=== PATIENT | male | born 1970 | race Caucasian/White ===

== ENCOUNTER 2016-09-15 00:01 | Inpatient (IN) | payer MEDICAID ==
[2016-09-15 00:01] VITALS: BMI 26.9
--- NOTE | 2016-09-15 00:58 | C.PDOC ---
History Of Present Illness Patient presents to the ED with complaints of heroin, Xanax, and marijuana abuse. Patient states last heroin use was approximately 30-40 minutes prior to arrival. Patient denies any homicidal or suicidal ideations. Time Seen by Provider: 09/15/16 00:58 Chief Complaint (Nursing): Psychiatric Evaluation History Per: Patient History/Exam Limitations: no limitations Onset/Duration Of Symptoms: Hrs Current Symptoms Are (Timing): Still Present Suicide/Self Injury Attempted (Context): None Associated Symptoms: denies: Suicidal Thoughts, Suicidal Plan Involuntary Hold By: None Recent travel outside of the [place]: No Past Medical History Reviewed: Historical Data, Nursing Documentation, Vital Signs Vital Signs: Last Vital Signs Temp 98.2 F 09/15/16 00:07 Pulse 76 09/15/16 00:07 Resp 20 09/15/16 00:07 BP 120/80 09/15/16 00:07 Pulse Ox 97 09/15/16 02:25 - Medical History PMH: Asthma Family History: States: Unknown Family Hx - Social History Hx Alcohol Use: No Hx Substance Use: No Review Of Systems Constitutional: Negative for: Fever, Chills, Sweats Cardiovascular: Negative for: Chest Pain, Palpitations Respiratory: Negative for: Cough, Shortness of Breath Gastrointestinal: Negative for: Nausea, Vomiting, Abdominal Pain, Diarrhea Physical Exam - Physical Exam Appears: Non-toxic, No Acute Distress Skin: Warm, Dry Head: Atraumatic Eye(s): bilateral: Normal Inspection Oral Mucosa: Moist Neck: Supple Chest: Symmetrical, No Deformity Cardiovascular: Rhythm Regular Respiratory: No Rales, No Rhonchi, No Stridor, No Wheezing Gastrointestinal/Abdominal: Soft, No Tenderness, No Distention, No Guarding, No Rebound Extremity: Normal ROM, No Tenderness Neurological/Psych: Oriented x3 ED Course And Treatment - Laboratory Results Result Diagrams: 09/15/16 01:17 09/15/16 01:17 O2 Sat by Pulse Oximetry: 97 (room air ) Pulse Ox Interpretation: Normal Disposition Discussed With : Princess Ruiz Comment: accepted the pt on his service adn took over the care at 3:10AM Doctor Will See Patient In The: Hospital Counseled Patient/Family Regarding: Studies Performed, Diagnosis - Disposition Disposition: HOSPITALIZED Disposition Time: 00:58 Condition: FAIR - POA Present On Arrival: None - Clinical Impression Clinical Impression: Polysubstance abuse - Scribe Statement The provider has reviewed the documentation as recorded by the Scribe Trixie Cohen All medical record entries made by the Scribe were at my direction and personally dictated by me. I have reviewed the chart and agree that the record accurately reflects my personal performance of the history, physical exam, medical decision making, and the department course for this patient. I have also personally directed, reviewed, and agree with the discharge instructions and disposition. Decision To Admit - Pt Status Changed To: Hospital Disposition Of: Inpatient - Admit Certification Admit to Inpatient:: After my assessment, the patient will require hospitalization for at least two midnights. This is because of the severity of symptoms shown, intensity of services needed, and/or the medical risk in this patient being treated as an outpatient. - InPatient: Physician Admission Certification: I certify that this patient requires 2 or more midnights of care for the following reason:: After my assessment, the patient will require hospitalization for at least two midnights. This is because of the severity of symptoms shown, intensity of services needed, and/or the medical risk in this patient being treated as an outpatient. - . Bed Request Type: Detox Admitting Physician: Princess Ruiz Patient Diagnosis: Polysubstance abuse
[2016-09-15 01:19] LABS: RBC URINE 1 /hpf (0-3); URINE BILIRUBIN NEGATIVE (NEGATIVE); URINE BLOOD NEGATIVE (NEGATIVE); URINE COLOR Yellow (YELLOW); URINE GLUCOSE (UA) NORMAL (Normal); URINE KETONE TRACE mg/dL (NEGATIVE); URINE LEUKOCYTE ESTERASE NEG Leu/uL (Negative); URINE PROTEIN NEGATIVE (NEGATIVE); URINE UROBILINOGEN NORMAL mg/dL (0.2-1.0); WBC URINE 1 /hpf (0-5)
[2016-09-15 01:22] LABS: BASO # 0.1 K/uL (0.0-0.2); BASO % 1.4 % (0.0-2.0); EOS # 0.2 K/uL (0.0-0.7); EOS % 3.3 % (0.0-4.0); HEMATOCRIT 41.7 % (35.0-51.0); LYMPH # 2.3 K/uL (1.0-4.3); LYMPH % 32.3 % (20.0-40.0); MEAN CELL VOLUME 81.1 fL (80.0-94.0); MEAN CORPUSCULAR HEMOGLOBIN 26.4 pg (27.0-31.0); MEAN CORPUSCULAR HGB CONC 32.6 g/dL (33.0-37.0); MEAN PLATELET VOLUME 8.3 fL (7.2-11.7); MONO # 0.7 K/uL (0.0-0.8); MONO % 10.3 % (0.0-10.0); RED CELL DISTRIBUTION WIDTH 13.7 % (11.5-14.5); WHITE BLOOD COUNT 7.1 K/uL (4.8-10.8)
[2016-09-15 01:29] LABS: CHLORIDE 104 mmol/L (98-107); POTASSIUM 4.3 mmol/L (3.6-5.2); SODIUM 143 mmol/L (132-148)
[2016-09-15 01:31] LABS: BILIRUBIN,TOTAL 0.4 mg/dL (0.2-1.3); CARBON DIOXIDE 27 mmol/L (22-30); GFR AFRICAN-AMERICAN > 60
[2016-09-15 01:32] LABS: ALB/GLOB RATIO 1.5 (1.0-2.1); ALKALINE PHOSPHATASE 69 U/L (38-126); ALT/SGPT 30 U/L (21-72); AST/SGOT 34 U/L (17-59); BLOOD UREA NITROGEN 17 mg/dL (9-20); CALCIUM 9.2 mg/dl (8.6-10.4); GLUCOSE,RANDOM 111 mg/dL (75-110); TOTAL PROTEIN 7.2 g/dL (6.3-8.3)
[2016-09-15 01:33] LABS: ALCOHOL SERUM < 10 mg/dl (0-10)
--- NOTE | 2016-09-15 08:18 | PCM.PSYCH ---
Initial Psychiatric Evaluation - Initial Psychiatric Evaluation Type of Admission: Voluntary Legal Status: Capacity History of Present Illness and Precipitating Events: This is a 46 years old -Chinese male, who lives with his friend, currently unemployed came to the ED to get help heroin and Benzos detox. Patient reports of long history of abusing opiate pain medications, heroin and Xanax. Patient reports a long history of abusing heroin opiate pain medications. He sniffs 10-20 bags of heroin on a daily basis. He also reported history of consuming 4-6 Xanax bars on a daily basis. As per the patient yesterday he abused 20 bags of heroin and consumed 5 Xanax bars and started experiencing withdrawal symptoms so he came to ED to get help in detox. Patient reports withdrawal symptoms including headache, anxiety, nausea, abdominal cramps, hot and cold sweats and back pain. Patient reports irritable mood and some anxiety. However he denies any feelings of hopelessness or helplessness, denies any suicidal ideation or homicidal ideation. Denies any psychotic or manic symptoms. He also reports smoking marijuana once in a while. Past medical history History of asthma Current Medications: Active Medications Generic Name Dose Route Start Last Admin Trade Name Freq PRN Reason Stop Dose Admin Clonidine HCl 0.1 mg 09/15/16 04:14 Catapres PO Q8 PRN COWS Score More or Equal to 5 Hydroxyzine HCl 25 mg 09/15/16 04:15 Atarax PO Q6 PRN Agitation Loperamide HCl 2 mg 09/15/16 04:14 Imodium PO Q8 PRN Diarrhea Lorazepam 1 mg 09/15/16 04:15 Ativan PO Q6 PRN Anxiety Ondansetron HCl 4 mg 09/15/16 04:14 Zofran Tab PO Q8 PRN Nausea/Vomiting Pseudoephedrine HCl 60 mg 09/15/16 04:14 Sudafed Tab PO QID PRN Nasal/Sinus Congestion Trazodone HCl 50 mg 09/15/16 22:00 Desyrel PO HS PIOTR Past Psychiatric History - Past Psychiatric History Previous Treatment History: Inpatient Pertinent Medical Hx (Current Medical&Sleep Prob, Allergies): Allergies Allergy/AdvReac Type Severity Reaction Status Date / Time No Known Allergies Allergy Verified 01/27/15 16:48 Albuterol 1 puff INH PRN PRN 01/27/15 Naproxen [Naprosyn] 1 tab PO BID PRN #25 tab 01/27/15 Review of Systems - Review of Systems All systems: reviewed and no additional remarkable complaints except - Psychiatric Psychiatric: As Per HPI, Anxiety, Irritability. absent: Auditory Hallucinations , Suicidal Ideation, Visual Hallucinations Mental Status Examination - Personal Presentation Personal Presentation: Looks stated age - Affect Affect: Constricted - Motor Activity Motor Activity: Calm - Reliability in Providing Information Reliability in Providing Information: Good - Speech Speech: Organized - Mood Mood: Anxious - Formal Thought Process Formal Thought Process: No Impairment - Obsessions/Compulsions Obsessions: No Compulsions: No - Cognitive Functions Orientation: Person, Place, Situation, Time Sensorium: Alert Attention/Concentration: Attentive Abstract Thinking: [place] Estimate of Intelligence: Below average Judgement: Imparied, as evidence by: Poor judgement, Intact, as evidence by: Insight regarding need for hospitalization - Risk Risk: Withdrawal, Diminished functioning - Strength & Assets Inventory Strength & Assets Inventory: Cooperative - Limitations Limitations: Living alone DSM 5 DX - DSM 5 DSM 5 Diagnosis: Opioid use disorder severe Opioid withdrawal Sedative /Hypnotic use disorder severe Sedative /Hypnotic withdrawal uncomplicated - Recommended/Plan of Treatment Treatment Recommendations and Plan of Treatment: Opioid use disorder severe CBT Psychoeducation Supportive therapy, individual therapy Use [place] for abstinence Opioid withdrawal CBT Psychoeducation Supportive therapy, individual therapy Clonidine when necessary Subutax taper Sedative /Hypnotic use disorder severe CBT Psychoeducation Supportive therapy, individual therapy Use ME for abstinence Sedative /Hypnotic withdrawal uncomplicated CBT Psychoeducation Supportive therapy, individual therapy Ativan when necessary Ativan taper when withdrawing - Smoking Cessation Smoking Cessation Initiated: No
[2016-09-16] MEDS ORDERED: Buprenorphine Hydrochloride 2 mg SL ONE ×2 (06:00→07:00)
--- NOTE | 2016-09-16 14:14 | PCM.PYCHPN ---
Psychiatric Progress Note - Psychiatric Progress Note Patient seen today, length of contact: 17 min Patient Chief Complaint: I'm feeling anxious Problems Identified/Issues Discussed: Patient seen and evaluated, chart reviewed and discussed with the nurse. Anival patient reports anxiety and irritability. He also reports withdrawal symptoms including abdominal cramps, back pain, anxiety, and sweating. He is tolerating the detox protocol medications and denies any feelings of hopelessness or helplessness. He denies any suicidal ideation or homicidal ideation. He denies any side effects of the medications. Supportive therapy and psychoeducation were given. Medication Change: Yes (Subutex taper) Medical Record Reviewed: Yes Mental Status Examination - Cognitive Function Orientation: Person, Place, Situation, Time Memory: Intact Attention: WNL Concentration: Poor Association: WNL Fund of Knowledge: Poor - Mood Mood: Anxious - Affect Affect: Constricted - Speech Speech: Soft - Formal Thought Process Formal Thought Process: No Impairment - Suicidal Ideation Suicidal Ideation: No - Homicidal Ideation Homicidal Ideation: No Goal/Treatment Plan - Goal/Treatment Plan Need for Continued Stay: Discharge may exacerbated symptoms, Severe functional impairment Progress Toward Problem(s) and Goals/Treatment Plan: Opioid use disorder severe CBT Psychoeducation Supportive therapy, individual therapy Use [place] for abstinence Opioid withdrawal CBT Psychoeducation Supportive therapy, individual therapy Clonidine when necessary Subutax taper Sedative /Hypnotic use disorder severe CBT Psychoeducation Supportive therapy, individual therapy Use [place] for abstinence Sedative /Hypnotic withdrawal uncomplicated CBT Psychoeducation Supportive therapy, individual therapy Ativan when necessary Ativan taper when withdrawing - Smoking Cessation Smoking Cessation Initiated: No
[2016-09-17] MEDS: Buprenorphine Hydrochloride 2 mg SL SCH (09:15)
[2016-09-17 20:17] VITALS: RESP 18
--- NOTE | 2016-09-17 22:37 | PCM.PYCHPN ---
Psychiatric Progress Note - Psychiatric Progress Note Patient seen today, length of contact: 16 min Patient Chief Complaint: "Better today" Problems Identified/Issues Discussed: The pt is seen, chart reviewed, case discussed with staff. The pt is compliant with medications and reports no side-effects. Symptoms are improving but needs more time to stabilize. After care discussed, support and psychoeducation given. NM and CBT used briefly. Medication Change: Yes (Subutex taper) Medical Record Reviewed: Yes Mental Status Examination - Cognitive Function Orientation: Person, Place, Situation, Time Memory: Intact Attention: WNL Concentration: Poor Association: WNL Fund of Knowledge: Poor - Mood Mood: Anxious - Affect Affect: Constricted - Speech Speech: Soft - Formal Thought Process Formal Thought Process: No Impairment - Suicidal Ideation Suicidal Ideation: No - Homicidal Ideation Homicidal Ideation: No Goal/Treatment Plan - Goal/Treatment Plan Need for Continued Stay: Discharge may exacerbated symptoms, Severe functional impairment Progress Toward Problem(s) and Goals/Treatment Plan: Continue medications Support and psychoeducation daily Attend groups and activities daily After care planning done
[2016-09-18] MEDS: Buprenorphine Hydrochloride 2 mg SL SCH (09:58)
--- NOTE | 2016-09-18 11:35 | PCM.PYCHPN ---
Psychiatric Progress Note - Psychiatric Progress Note Patient seen today, length of contact: 17 min Patient Chief Complaint: "I am thinking about leaving" Problems Identified/Issues Discussed: The pt is seen, chart reviewed, case discussed with staff. He asked to leave but risks discussed and he agreed to stay and complete his detox. Symptoms are improving but needs more time to stabilize. will leave tomorrow After care discussed, support and psychoeducation given. Will go to [facility] HI and CBT used briefly. Medication Change: Yes (Subutex taper) Medical Record Reviewed: Yes Mental Status Examination - Cognitive Function Orientation: Person, Place, Situation, Time Memory: Intact Attention: WNL Concentration: Poor Association: WNL Fund of Knowledge: Poor - Mood Mood: Anxious - Affect Affect: Constricted - Speech Speech: Soft - Formal Thought Process Formal Thought Process: No Impairment - Suicidal Ideation Suicidal Ideation: No - Homicidal Ideation Homicidal Ideation: No Goal/Treatment Plan - Goal/Treatment Plan Need for Continued Stay: Discharge may exacerbated symptoms, Severe functional impairment Progress Toward Problem(s) and Goals/Treatment Plan: Continue medications Support and psychoeducation daily Attend groups and activities daily After care planning done - [facility] Estimated Date of D/C: 09/19/16 - Smoking Cessation Smoking Cessation Initiated: Yes
--- NOTE | 2016-09-19 08:47 | PCM.PYCHDC ---
Mental Status Examination - Mental Status Examination Orientation: Person, Place, Situation, Time Memory: Intact Mood: Neutral Affect: Broad Speech: Appropriate Attention: WNL Concentration: WNL Association: WNL Fund of Knowledge: WNL Formal Thought Process: No Impairment Suicidal Ideation: No Current Homicidal Ideation?: No Discharge Summary - Discharge Note Reason for Hospitalization: Opioid and benzo use and detox. Consultations:: List each consultation separately and include: 1. Reason for request. 2. Findings. 3. Follow-up Summary of Hospital Course include:: 1. Description of specific treatment plan utilized for patients during their course of treatmen. 2. Summarize the time- course for resolution of acute symptoms and/or regressed behaviors. 3. Describe issues identified and worked on during hospitalization. 4. Describe medication utilized. 5. Describe medical problems identified and treated. 6. Reassessment of suicide risk Summary of Hospital Course: The pt was admitted and started on treatment with psychotherapy, support, psychoeducation and medications. NV and CBT used. The pt attended groups and activities, as well as milieu therapy. All the risks and benefits of medications are discussed and the patient understood and agreed. After care discussed with the patient. He is accepted by [facility] and left for there. - Final Diagnosis (DSM 5) Condition upon Discharge: IMPROVED DSM 5: Opioid use disorder severe Opioid withdrawal Sedative /Hypnotic use disorder severe Sedative /Hypnotic withdrawal uncomplicated Disposition: REHAB FACILITY/REHAB UNIT Follow-up Treatment Plan: He did not want any meds Follow after care plan as discussed; [facility] Use relapse prevention skills Return to ER or call 911 if suicidal, homicidal or symptoms relapse. Stay away from stress, alcohol and drugs. See primary doctor once a year. - Smoking Cessation Smoking Cessation Medication prescribed: No - Antipsychotic Medications Pt discharged on 2 or more routine antipsychotic medications: No
[2016-09-19] MEDS: Buprenorphine Hydrochloride 2 mg SL SCH (09:09)
[2016-09-19 09:51] VITALS: BP 116/79; PULSE 79; TEMP 98.3; O2SAT 100
== END 2016-09-19 10:00 | DRG 895 ==
LOC: C.ER 00:01 → C.7D 03:11
PROVIDERS: ADMIT Psychiatry & Neurology Psychiatry; ATTEND Psychiatry & Neurology Psychiatry
PROC: HZ2ZZZZ Detoxification Services for Substance Abuse Treatment (ICD-10-PCS; principal; 2016-09-15)
PROC: HZ59ZZZ Individual Psychotherapy for Substance Abuse Treatment, Supportive (ICD-10-PCS; 2016-09-15)
PROC: HZ86ZZZ Medication Management for Substance Abuse Treatment, Clonidine (ICD-10-PCS; 2016-09-15)
PROC: HZ96ZZZ Pharmacotherapy for Substance Abuse Treatment, Clonidine (ICD-10-PCS; 2016-09-15)
DX: F11.23 Opioid dependence with withdrawal (principal); F13.230 Sedative, hypnotic or anxiolytic dependence with withdrawal, uncomplicated; J45.909 Unspecified asthma, uncomplicated; F17.210 Nicotine dependence, cigarettes, uncomplicated

== ENCOUNTER 2016-09-27 16:14 | Emergency (ER) | payer OTHER ==
[2016-09-27 16:15] VITALS: BMI 26.9
[2016-09-27 16:24] VITALS: BP 138/85; PULSE 115; RESP 20; TEMP 99; O2SAT 99
--- NOTE | 2016-09-27 18:39 | C.PDOC ---
History Of Present Illness 46 yr old male presents to the ER requesting a note for the [employer] stating he can't work in a area that has dust. States he has asthma and uses his albuterol pump as needed. Patient states he has no PMD. Denies fever, chest pain, SOB or rash. Time Seen by Provider: 09/27/16 16:30 Chief Complaint (Nursing): Shortness Of Breath History Per: Patient History/Exam Limitations: no limitations Past Medical History Reviewed: Historical Data, Nursing Documentation, Vital Signs Vital Signs: Last Vital Signs Temp 99 F 09/27/16 16:22 Pulse 115 H 09/27/16 16:22 Resp 20 09/27/16 16:40 BP 138/85 09/27/16 16:22 Pulse Ox 99 09/27/16 18:40 - Medical History PMH: Asthma - [facility] Procedures DETOXIFICATION SERVICES FOR SUBSTANCE ABUSE TREATMENT (09/15/16) INDIV PSYCHOTHERAPY FOR SUBSTANCE ABUSE TREATMENT, SUPPORT (09/15/16) MEDS MGMT FOR SUBSTANCE ABUSE TREATMENT, CLONIDINE (09/15/16) PHARMACOTHERAPY FOR SUBSTANCE ABUSE TREATMENT, CLONIDINE (09/15/16) Family History: States: No Known Family Hx - Social History Hx Alcohol Use: No Hx Substance Use: No Review Of Systems Except As Marked, All Systems Reviewed And Found Negative. Constitutional: Negative for: Fever Cardiovascular: Negative for: Chest Pain Respiratory: Negative for: Shortness of Breath Skin: Negative for: Rash Physical Exam - Physical Exam Appears: Non-toxic, No Acute Distress Skin: Warm, Dry, No Rash Head: Atraumatic, Normacephalic Chest: Symmetrical, No Tenderness Cardiovascular: Rhythm Regular, No Murmur Respiratory: Normal Breath Sounds, No Rales, No Rhonchi, No Stridor, No Wheezing Extremity: Normal ROM, No Swelling Neurological/Psych: Oriented x3, Normal Speech, Normal Motor ED Course And Treatment O2 Sat by Pulse Oximetry: 99 Disposition - Disposition Referrals: [facility] [Outside] [facility] [Outside] Disposition: HOME/ ROUTINE Disposition Time: 16:50 Condition: GOOD Additional Instructions: Thank you for letting us take care of you today. You were treated for asthma. The emergency medical care you received today was directed at your acute symptoms. If you were prescribed any medication, please fill it and take as directed. It may take several days for your symptoms to resolve. Return to the Emergency Department if your symptoms worsen, do not improve, or if you have any other problems. Please contact your doctor or call one of the physicians/clinics you have been referred to that are listed on the Patient Visit Information form that is included in your discharge packet. Bring any paperwork you were given at discharge with you along with any medications you are taking to your follow up visit. Our treatment cannot replace ongoing medical care by a primary care provider (PCP) outside of the emergency department. Thank you for allowing the [facility] team to be part of your care today. Follow up in the clinic for outpatient care. To the [employer]: The above patient claims to have asthma. Please consider this when assigning him work. He will follow up with our clinic in 3-4 days to establish a primary care doctor. Instructions: Asthma (ED) - Clinical Impression Clinical Impression: Asthma - Scribe Statement The provider has reviewed the documentation as recorded by the Malaikaibleland Rodriguez Provider Attestation: All medical record entries made by the Malaikaibleland were at my direction and personally dictated by me. I have reviewed the chart and agree that the record accurately reflects my personal performance of the history, physical exam, medical decision making, and the department course for this patient. I have also personally directed, reviewed, and agree with the discharge instructions and disposition.
== END 2016-09-27 17:07 | disposition home or self-care (01) ==
LOC: C.ER 16:14
DX: J45.909 Unspecified asthma, uncomplicated (principal)

== ENCOUNTER 2017-02-21 03:40 | Inpatient (IN) | payer SELFPAY ==
[2017-02-21 03:40] VITALS: BMI 26.9
--- NOTE | 2017-02-21 04:54 | C.PDOC ---
History Of Present Illness 46 year old male with Hx of substance abuse presents to the ED for detox. Patient was pre screened before, he states using heroin, xanax and marijuana. Last use of heroin was today at 22:00. Denies any physical problems at the time. Time Seen by Provider: 02/21/17 04:19 Chief Complaint (Nursing): Substance Abuse History Per: Patient History/Exam Limitations: no limitations Onset/Duration Of Symptoms: Hrs Suicide/Self Injury Attempted (Context): None Modifying Factor(s): Marijuana, Other (Heroin, Xanax) Associated Symptoms: denies: Depression, Suicidal Thoughts, Suicidal Plan Involuntary Hold By: None Recent travel outside of the [place]: No Additional History Per: Patient Past Medical History Reviewed: Historical Data, Nursing Documentation, Vital Signs Vital Signs: Last Vital Signs Temp 97.7 F 02/21/17 04:13 Pulse 82 02/21/17 04:13 Resp 20 02/21/17 04:13 BP 129/85 02/21/17 04:13 Pulse Ox 100 02/21/17 04:59 - Medical History PMH: Asthma Denies: Diabetes, Hepatitis, HIV, HTN, Seizures, Sexually Transmitted Disease Surgical History: No Surg Hx - [facility] Procedures DETOXIFICATION SERVICES FOR SUBSTANCE ABUSE TREATMENT (09/15/16) INDIV PSYCHOTHERAPY FOR SUBSTANCE ABUSE TREATMENT, SUPPORT (09/15/16) MEDS MGMT FOR SUBSTANCE ABUSE TREATMENT, CLONIDINE (09/15/16) PHARMACOTHERAPY FOR SUBSTANCE ABUSE TREATMENT, CLONIDINE (09/15/16) Family History: States: Unknown Family Hx - Social History Hx Alcohol Use: Yes Hx Substance Use: Yes - Immunization History Hx Tetanus Toxoid Vaccination: No Hx Influenza Vaccination: No Hx Pneumococcal Vaccination: No Review Of Systems Constitutional: Negative for: Fever Cardiovascular: Negative for: Chest Pain, Palpitations Respiratory: Negative for: Cough, Shortness of Breath Gastrointestinal: Negative for: Nausea, Vomiting, Abdominal Pain Neurological: Negative for: Weakness, Numbness Psych: Negative for: Depression, Suicidal ideation Physical Exam - Physical Exam Appears: Non-toxic, No Acute Distress Skin: Normal Color, Warm, Dry Head: Atraumatic, Normacephalic Oral Mucosa: Moist Neck: Normal ROM, Supple Chest: Symmetrical, No Tenderness Cardiovascular: Rhythm Regular, No Murmur Respiratory: Normal Breath Sounds, No Accessory Muscle Use, No Rales, No Rhonchi , No Wheezing Gastrointestinal/Abdominal: Soft, No Tenderness Extremity: Normal ROM, No Pedal Edema, No Calf Tenderness, No Swelling Neurological/Psych: Oriented x3, Normal Speech, Normal Cognition Gait: Steady ED Course And Treatment - Laboratory Results Result Diagrams: 02/21/17 04:58 02/21/17 04:58 O2 Sat by Pulse Oximetry: 100 (On RA) Pulse Ox Interpretation: Normal Progress Note: Plan: - Blood work ordered. -UA ordered. Patient was pre screened before for detox due to his use of heroin, xanax and marijuana. Pt is medically cleared for crisis eval and admission. Pt was screened by [facility] and will be admitted to Detox under Dr Pan Disposition - Disposition Disposition: HOSPITALIZED Disposition Time: 06:52 Condition: STABLE Forms: [facility] ([place]) - Clinical Impression Clinical Impression: Polysubstance abuse, Opioid use disorder, severe, dependence - PA / W[employer]IM[employer]ET[employer]ER / Resident Statement MD/DO has reviewed & agrees with the documentation as recorded. - Scribe Statement The provider has reviewed the documentation as recorded by the Scribe Yaron Yousif All medical record entries made by the Scribe were at my direction and personally dictated by me. I have reviewed the chart and agree that the record accurately reflects my personal performance of the history, physical exam, medical decision making, and the department course for this patient. I have also personally directed, reviewed, and agree with the discharge instructions and disposition.
[2017-02-21 05:01] LABS: BASO % 0.7 % (0.0-2.0); EOS # 0.2 K/uL (0.0-0.7); EOS % 3.5 % (0.0-4.0); HEMATOCRIT 44.3 % (35.0-51.0); LYMPH % 27.5 % (20.0-40.0); MEAN CELL VOLUME 80.7 fL (80.0-94.0); MEAN CORPUSCULAR HGB CONC 32.2 g/dL (33.0-37.0); MEAN PLATELET VOLUME 8.2 fL (7.2-11.7); MONO # 0.7 K/uL (0.0-0.8); MONO % 10.1 % (0.0-10.0); RED CELL DISTRIBUTION WIDTH 14.2 % (11.5-14.5); WHITE BLOOD COUNT 7.2 K/uL (4.8-10.8)
[2017-02-21 05:15] LABS: ALCOHOL SERUM < 10 mg/dl (0-10); ALKALINE PHOSPHATASE 72 U/L (38-126); ALT/SGPT 43 U/L (21-72); AST/SGOT 27 U/L (17-59); BILIRUBIN,TOTAL 0.4 mg/dL (0.2-1.3); BLOOD UREA NITROGEN 18 mg/dL (9-20); CALCIUM 8.9 mg/dl (8.6-10.4); CARBON DIOXIDE 27 mmol/L (22-30); CHLORIDE 101 mmol/L (98-107); GFR AFRICAN-AMERICAN > 60; GLUCOSE,RANDOM 73 mg/dL (75-110); POTASSIUM 4.1 mmol/L (3.6-5.2); SODIUM 137 mmol/L (132-148); TOTAL PROTEIN 8.3 g/dL (6.3-8.3)
[2017-02-21 05:21] LABS: ALB/GLOB RATIO 1.1 (1.0-2.1)
[2017-02-21 05:57] LABS: RBC URINE 1 /hpf (0-3); URINE BACTERIA RARE (<OCC); URINE BILIRUBIN NEGATIVE (NEGATIVE); URINE BLOOD NEGATIVE (NEGATIVE); URINE COLOR Yellow (YELLOW); URINE GLUCOSE (UA) NORMAL (Normal); URINE KETONE NEGATIVE (NEGATIVE); URINE LEUKOCYTE ESTERASE NEG Leu/uL (Negative); URINE PROTEIN NEGATIVE (NEGATIVE); URINE UROBILINOGEN NORMAL mg/dL (0.2-1.0); WBC URINE < 1 /hpf (0-5)
[2017-02-21] MEDS ORDERED: Aluminum Hydroxide/Magnesium Hydroxide Susp (30 mL) PO PRN (10:16)
--- NOTE | 2017-02-21 11:25 | PCM.BM ---
<Julia Simpson - Last Filed: 02/21/17 11:22> Treatment Plan Problems - Problems identified on initial assessmt Potential opiate withdrawals Date Initiated: 02/21/17 Assessment reference: NA Status: Active Potential benzo withdrawals Date Initiated: 02/21/17 Assessment reference: NA Status: Active Treatment assets and liabiliti Patient Assests: adapts well, cooperative, ADL independent, physically healthy, negotiates basic needs Patient Liabilities: substance abuse - Milieu Protocol Maintain good personal hygiene: daily Encourage regular showers, daily Remind patient to perform daily oral care, daily Assist patient to perform ADL's Conduct patient checks and document Observation sheet: Q15 minutes Maintain personal safety: every shift Educate patient to report safety concerns to staff, every shift Monitor environment for contraband/sharps Medication safety: Monitor for expected outcome, potential side effects: every shift, Assess barriers to learning: every shift, Assess readiness for medication education: every shift <Nilda Cisneros - Last Filed: 02/22/17 00:25> - Diagnosis (1) Opioid use disorder, severe, dependence Status: Acute Interventions: 02/22/17 00:25 * Assess 7x/week regarding severity of withdrawal * Educate regarding risks, benefits, side effects and alternatives of medications * Use Motivational Interviewing for abstinence * Use CBT for relapse prevention * Medication management for withdrawal symptoms * Encourage medication assisted treatment * <Ivy Lao - Last Filed: 02/25/17 08:54> Family Contact Family involvement: Family/SO is involved Family contact: Patient agrees to contact - Goals for Treatment Patient goals for treatment: COMPLETE DETOX AND APPLY FOR REHAB AT [facility]. Discharge/Continuing Care - Education Needs Education Needs: Patient Medication, Patient Diagnosis/Disease Process, Patient Coping Skills, Patient Anger Management skills, Patient Placement options, Patient Community resources - Discharge Discharge Criteria: No longer exhibiting s/s of withdrawal, Reduction of target symptoms Discharge to:: Substance Abuse Rehab - Treatment Team Participation Patient/Family/SO Statement: 02/25/17 08:53 "I WANNA GO TO [facility]". Discussed with Family/SO: Yes Was Patient/Family/SO present at Treatment Team Meeting: Yes
[2017-02-21] MEDS: Multiple Vitamins Tab PO SCH (11:27)
--- NOTE | 2017-02-21 11:55 | PCM.PSYCH ---
Initial Psychiatric Evaluation - Initial Psychiatric Evaluation Type of Admission: Voluntary Legal Status: Capacity Chief Complaint (in patient's own words): "I relapsed" History of Present Illness and Precipitating Events: The pt is seen, chart reviewed, case discussed with staff. Patient is a 46 YO single male who lives in with family. 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 Patient has a lifetime heroin use of 23 years. Patient has been using 40 bags/day intranasal since November when he relapsed. Patient has been in detox here once before. Patient has been to rehab once before. Patient has never used methadone for maintenance. Patient has never been to NA meetings. Patient reports using 4 sticks of Xanax "most days" for the last 5 years. Patient denies alcohol use. Patient denies any other drug use. Patient reports smoking 10 cigarettes/day. Patient plans to attend a [facility] rehab on discharge. Psych hx: denies Family hx: denies PMH: asthma Current Medications: Active Medications Generic Name Dose Route Start Last Admin Trade Name Freq PRN Reason Stop Dose Admin Al Hydrox/Mg Hydrox/Simethicone 30 ml 02/21/17 10:16 Maalox 30 Ml PO TID PRN Indigestion / Heartburn Chlordiazepoxide 25 mg 02/21/17 12:00 Librium PO 02/25/17 11:59 Q6 PIOTR Taper Chlordiazepoxide 25 mg 02/21/17 10:18 Librium PO Q4H PRN Alcohol Withdrawal Clonidine HCl 0.1 mg 02/21/17 10:16 Catapres PO Q8 PRN COWS Score More or Equal to 5 Gabapentin 300 mg 02/21/17 14:00 Neurontin PO TID [facility] Hydroxyzine HCl 50 mg 02/21/17 10:18 Atarax PO Q6H PRN Anxiety Ibuprofen 600 mg 02/21/17 10:18 Motrin Tab PO Q6H PRN Pain, moderate (4-7) Loperamide HCl 2 mg 02/21/17 10:16 Imodium PO Q8 PRN Diarrhea Multivitamins 1 tab 02/21/17 10:30 02/21/17 11:27 Hexavitamin PO Not Given DAILY [facility] Ondansetron HCl 4 mg 02/21/17 10:16 Zofran Tab PO Q8 PRN Nausea/Vomiting Past Psychiatric History - Past Psychiatric History Previous Treatment History: None Pertinent Medical Hx (Current Medical&Sleep Prob, Allergies): Allergies Allergy/AdvReac Type Severity Reaction Status Date / Time No Known Allergies Allergy Verified 09/27/16 16:28 Albuterol HFA [Ventolin HFA 90 mcg/actuation (8 g)] 1 puff INH PRN PRN 01/27/15 Review of Systems - Psychiatric Psychiatric: Abnormal Sleep Pattern, Anxiety. absent: Hallucinations, Homicidal Ideation, Suicidal Ideation Mental Status Examination - Personal Presentation Personal Presentation: Looks older than stated age - Affect Affect: Blunted - Motor Activity Motor Activity: Calm - Reliability in Providing Information Reliability in Providing Information: Fair - Speech Speech: Organized - Mood Mood: Neutral - Formal Thought Process Formal Thought Process: No Impairment - Obsessions/Compulsions Obsessions: None Compulsions: None - Cognitive Functions Orientation: Person, Place, Situation, Time Sensorium: Alert Estimate of Intelligence: Average Judgement: Intact, as evidence by: Insight regarding need for hospitalization Memory: Recent intact, as evidence by: Ability to recall events of the day, Remote intact, as evidenced by: Abilit to recall sig. 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
[2017-02-21] MEDS ORDERED: Buprenorphine Hydrochloride 2 mg SL ONE ×2 (18:01→19:28)
[2017-02-22] MEDS: Multiple Vitamins Tab PO SCH (08:59)
[2017-02-22] MEDS: Buprenorphine Hydrochloride 2 mg SL SCH (09:00)
--- NOTE | 2017-02-22 13:27 | PCM.PYCHPN ---
Psychiatric Progress Note - Psychiatric Progress Note Patient seen today, length of contact: 16 min Patient Chief Complaint: "Very tired" Problems Identified/Issues Discussed: The pt is seen, chart reviewed, case discussed with staff. The pt is compliant with medications and reports no side-effects. Symptoms are improving but needs more time to stabilize. After care discussed, support and psychoeducation given. Medication Change: Yes (detox changes daily) Medical Record Reviewed: Yes Mental Status Examination - Cognitive Function Orientation: Person, Place, Situation, Time Memory: Intact Attention: WNL Concentration: WNL Association: WNL Fund of Knowledge: WNL - Mood Mood: Neutral - Affect Affect: Constricted - Formal Thought Process Formal Thought Process: No Impairment - Suicidal Ideation Suicidal Ideation: No - Homicidal Ideation Homicidal Ideation: No Goal/Treatment Plan - Goal/Treatment Plan Need for Continued Stay: Discharge may exacerbated symptoms, Severe functional impairment Progress Toward Problem(s) and Goals/Treatment Plan: Subutex and librium detox As needed medications Gabapentin for augmentation Attend groups and activities Supportive therapy and psychoeducation [place] for abstinence CBT for relapse prevention Encourage MAT Refer to rehab or IOP Attend self-help groups as well
[2017-02-23] MEDS: Multiple Vitamins Tab PO SCH (09:15)
[2017-02-23] MEDS: Buprenorphine Hydrochloride 2 mg SL SCH (09:15)
--- NOTE | 2017-02-23 17:13 | PCM.PYCHPN ---
Psychiatric Progress Note - Psychiatric Progress Note Patient seen today, length of contact: 16 min Patient Chief Complaint: "I'm fine" Problems Identified/Issues Discussed: The pt is seen, chart reviewed, case discussed with staff. Support given, CBT and [place] used briefly No new symptoms reported, improving slowly and needs more time No SEs from medications, risks discussed. 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 severe anxiety disorder - unspecified Medication Change: Yes (detox changes daily) Medical Record Reviewed: Yes Mental Status Examination - Cognitive Function Orientation: Person, Place, Situation, Time Memory: Intact Attention: WNL Concentration: WNL Association: [facility] Fund of Knowledge: WN - Mood Mood: Neutral - Affect Affect: Constricted - Speech Speech: Appropriate - Formal Thought Process Formal Thought Process: No Impairment Psychotic Thoughts and Behaviors: denied - Suicidal Ideation Suicidal Ideation: No - Homicidal Ideation Homicidal Ideation: No Goal/Treatment Plan - Goal/Treatment Plan Need for Continued Stay: Discharge may exacerbated symptoms, Severe functional impairment Progress Toward Problem(s) and Goals/Treatment Plan: Subutex and librium detox As needed medications Gabapentin for augmentation Attend groups and activities Supportive therapy and psychoeducation [place] for abstinence CBT for relapse prevention Encourage MAT Refer to rehab or IOP Attend self-help groups as well Estimated Date of D/C: 02/25/17 - Smoking Cessation Smoking Cessation Initiated: Yes
[2017-02-24] MEDS: Multiple Vitamins Tab PO SCH (09:49)
[2017-02-24] MEDS: Buprenorphine Hydrochloride 2 mg SL SCH (09:50)
--- NOTE | 2017-02-24 16:25 | PCM.PYCHPN ---
Psychiatric Progress Note - Psychiatric Progress Note Patient seen today, length of contact: 16 min Patient Chief Complaint: "I'm fine" Problems Identified/Issues Discussed: The pt is seen, chart reviewed, case discussed with staff. Support given, CBT and [place] used briefly No new symptoms reported, improving slowly and needs more time. He is most of the time isolated to himself in the room No SEs from medications, risks discussed. After care discussed DSM 5 Symptoms Update: Opioid withdrawal Sedative, hypnotic or anxiolytic use d/o, severe, dependence,opioid use d/o severe, dependence Medication Change: Yes (detox changes daily) Medical Record Reviewed: Yes Mental Status Examination - Cognitive Function Orientation: Person, Place, Situation, Time Memory: Intact Attention: WNL Concentration: WNL Association: WNL Fund of Knowledge: [facility] Decription of patient's judgement and insights: good/good Addtional comments: He is malodorous - Mood Mood: Neutral - Affect Affect: Constricted - Speech Speech: Appropriate - Formal Thought Process Formal Thought Process: No Impairment Psychotic Thoughts and Behaviors: denied - Suicidal Ideation Suicidal Ideation: No - Homicidal Ideation Homicidal Ideation: No Goal/Treatment Plan - Goal/Treatment Plan Need for Continued Stay: Discharge may exacerbated symptoms, Severe functional impairment Progress Toward Problem(s) and Goals/Treatment Plan: Subutex and librium detox As needed medications Gabapentin for augmentation Attend groups and activities Supportive therapy and psychoeducation [place] for abstinence CBT for relapse prevention Encourage MAT Refer to rehab or IOP Attend self-help groups as well Estimated Date of D/C: 02/25/17
[2017-02-25 06:23] VITALS: RESP 18; TEMP 97.7
--- NOTE | 2017-02-25 08:45 | PCM.PYCHDC ---
Mental Status Examination - Mental Status Examination Orientation: Person Discharge Summary - Discharge Note Consultations:: List each consultation separately and include: 1. Reason for request. 2. Findings. 3. Follow-up Summary of Hospital Course include:: 1. Description of specific treatment plan utilized for patients during their course of treatmen. 2. Summarize the time- course for resolution of acute symptoms and/or regressed behaviors. 3. Describe issues identified and worked on during hospitalization. 4. Describe medication utilized. 5. Describe medical problems identified and treated. 6. Reassessment of suicide risk Summary of Hospital Course: The pt is seen, chart reviewed, case discussed with staff. Patient is a 46 YO single male who lives in with family. 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 Patient has a lifetime heroin use of 23 years. Patient has been using 40 bags/day intranasal since November when he relapsed. Patient has been in detox here once before. Patient has been to rehab once before. Patient has never used methadone for maintenance. Patient has never been to NA meetings. Patient reports using 4 sticks of Xanax "most days" for the last 5 years. Patient denies alcohol use. Patient denies any other drug use. Patient reports smoking 10 cigarettes/day. Patient plans to attend a longterm rehab on discharge. Psych hx: denies Family hx: denies PMH: asthma - Diagnosis (1) Opioid use disorder, severe, dependence Current Visit: Yes Status: Acute - Final Diagnosis (DSM 5) Condition upon Discharge: STABLE Disposition: HOME/ ROUTINE Follow-up Treatment Plan: Subutex and librium detox As needed medications Gabapentin for augmentation Attend groups and activities Supportive therapy and psychoeducation [place] for abstinence CBT for relapse prevention Encourage MAT Refer to rehab or IOP Attend self-help groups as well Prescriptions/Medication Reconciliation: Gabapentin [Neurontin] 300 mg PO TID #90 cap QUEtiapine [SEROquel] 100 mg PO HS #30 tab
[2017-02-25 09:07] VITALS: BP 107/73; PULSE 67; O2SAT 98
[2017-02-25] MEDS: Buprenorphine Hydrochloride 2 mg SL SCH (09:10)
[2017-02-25] MEDS: Multiple Vitamins Tab PO SCH (09:10)
== END 2017-02-25 09:35 | disposition home or self-care (01) | DRG 895 ==
LOC: C.ER 03:40 → C.7D 06:52
PROC: HZ2ZZZZ Detoxification Services for Substance Abuse Treatment (ICD-10-PCS; principal; 2017-02-21)
PROC: HZ52ZZZ Individual Psychotherapy for Substance Abuse Treatment, Cognitive-Behavioral (ICD-10-PCS; 2017-02-21)
PROC: HZ42ZZZ Group Counseling for Substance Abuse Treatment, Cognitive-Behavioral (ICD-10-PCS; 2017-02-21)
PROC: HZ59ZZZ Individual Psychotherapy for Substance Abuse Treatment, Supportive (ICD-10-PCS; 2017-02-21)
PROC: HZ56ZZZ Individual Psychotherapy for Substance Abuse Treatment, Psychoeducation (ICD-10-PCS; 2017-02-21)
PROC: HZ46ZZZ Group Counseling for Substance Abuse Treatment, Psychoeducation (ICD-10-PCS; 2017-02-21)
DX: F11.23 Opioid dependence with withdrawal (principal); F10.230 Alcohol dependence with withdrawal, uncomplicated; Y90.0 Blood alcohol level of less than 20 mg/100 ml; F13.20 Sedative, hypnotic or anxiolytic dependence, uncomplicated; J45.909 Unspecified asthma, uncomplicated; F41.9 Anxiety disorder, unspecified; F17.210 Nicotine dependence, cigarettes, uncomplicated

== ENCOUNTER 2017-11-07 23:52 | Inpatient (IN) | payer MEDICAID, OTHER ==
[2017-11-07 23:52] VITALS: BMI 26.9
--- NOTE | 2017-11-08 00:19 | C.PDOC ---
History Of Present Illness 47 year old male presents to the ED requesting detox for heroin and xanax abuse. Patient states his last use was this morning. While in the ED patient is asymptomatic. Patient denies SI/HI, hallucinations, CP, SOB, other substance abuse. Time Seen by Provider: 11/08/17 00:04 Chief Complaint (Nursing): Substance Abuse History Per: Patient History/Exam Limitations: intoxication Onset/Duration Of Symptoms: Hrs Current Symptoms Are (Timing): Still Present Suicide/Self Injury Attempted (Context): None Modifying Factor(s): Other (Heroin and xanax) Associated Symptoms: denies: Depression, Suicidal Thoughts, Suicidal Plan Involuntary Hold By: None Recent travel outside of the [place]: No Additional History Per: Patient Past Medical History Reviewed: Historical Data, Nursing Documentation, Vital Signs Vital Signs: Last Vital Signs Temp 98.6 F 11/08/17 00:02 Pulse 77 11/08/17 00:02 Resp 20 11/08/17 00:02 BP 133/87 11/08/17 00:02 Pulse Ox 97 11/08/17 00:24 - Medical History PMH: Asthma Denies: Atrial Fibrillation, Cardia Arrhythmia, CHF, Diabetes, Hepatitis, HIV , HTN, Hypercholesterolemia, Mitral Valve Prolapse, Peripheral Edema, Seizures, Sexually Transmitted Disease Surgical History: No Surg Hx Denies: Pacemaker - [facility] Procedures DETOXIFICATION SERVICES FOR SUBSTANCE ABUSE TREATMENT (02/21/17) GROUP CRIME LABORATORY ANALYST FOR SUBSTANCE ABUSE TREATMENT, PSYCHOEDUCATION (02/21/17) GROUP CRIME LABORATORY ANALYST FOR SUBSTANCE ABUSE, COGNITIVE BEHAVIORAL (02/21/17) INDIV PSYCHOTHERAPY FOR SUBSTANCE ABUSE TREATMENT, SUPPORT (02/21/17) INDIV PSYCHOTHERAPY FOR SUBSTANCE ABUSE, COGNITIV BEHAVIORAL (02/21/17) INDIV PSYCHOTHERAPY FOR SUBSTANCE ABUSE, PSYCHOEDUCATION (02/21/17) MEDS MGMT FOR SUBSTANCE ABUSE TREATMENT, CLONIDINE (09/15/16) PHARMACOTHERAPY FOR SUBSTANCE ABUSE TREATMENT, CLONIDINE (09/15/16) Family History: States: Unknown Family Hx - Social History Hx Alcohol Use: No (occasional drinking) Hx Substance Use: Yes - Immunization History Hx Tetanus Toxoid Vaccination: No Hx Influenza Vaccination: No Hx Pneumococcal Vaccination: No Review Of Systems Constitutional: Negative for: Fever, Chills Cardiovascular: Negative for: Chest Pain, Palpitations Respiratory: Negative for: Cough, Shortness of Breath Gastrointestinal: Negative for: Nausea, Vomiting Skin: Negative for: Rash Psych: Negative for: Depression, Suicidal ideation Physical Exam - Physical Exam Appears: Non-toxic, No Acute Distress Skin: Normal Color, Warm, Dry Head: Atraumatic, Normacephalic Eye(s): bilateral: Normal Inspection Neck: Normal ROM, Supple Chest: Symmetrical Cardiovascular: Rhythm Regular Respiratory: Normal Breath Sounds, No Rales, No Rhonchi, No Wheezing Gastrointestinal/Abdominal: Soft, No Tenderness, No Guarding, No Rebound Extremity: Normal ROM, No Tenderness, No Swelling Neurological/Psych: Oriented x3, Normal Speech Gait: Steady ED Course And Treatment - Laboratory Results Result Diagrams: 11/08/17 00:42 11/08/17 00:42 O2 Sat by Pulse Oximetry: 97 (ON RA) Pulse Ox Interpretation: Normal Progress - Re-Evaluation Re-evaluation Note: 11/08/17 01:50 MED CLEAR FOR DETOX - Data Reviewed Data Reviewed: Lab, Old records Medical Decision Making Medical Decision Making: Impression: heroin and xanax detox Plan: * Labs * UA * Crisis Disposition Counseled Patient/Family Regarding: Studies Performed, Diagnosis - Disposition Disposition: HOSPITALIZED Disposition Time: 01:50 Condition: STABLE Forms: [facility] (Mongolian) - POA Present On Arrival: None - Clinical Impression Clinical Impression: Polysubstance abuse - Scribe Statement The provider has reviewed the documentation as recorded by the Scribe Yaron Yousif All medical record entries made by the Scribe were at my direction and personally dictated by me. I have reviewed the chart and agree that the record accurately reflects my personal performance of the history, physical exam, medical decision making, and the department course for this patient. I have also personally directed, reviewed, and agree with the discharge instructions and disposition.
[2017-11-08 00:50] LABS: BASO # 0.1 K/uL (0.0-0.2); BASO % 1.5 % (0.0-2.0); EOS # 0.2 K/uL (0.0-0.7); EOS % 2.7 % (0.0-4.0); LYMPH # 2.8 K/uL (1.0-4.3); LYMPH % 32.3 % (20.0-40.0); MEAN CELL VOLUME 80.9 fL (80.0-94.0); MEAN CORPUSCULAR HEMOGLOBIN 26.4 pg (27.0-31.0); MEAN CORPUSCULAR HGB CONC 32.7 g/dL (33.0-37.0); MEAN PLATELET VOLUME 8.2 fL (7.2-11.7); MONO # 0.8 K/uL (0.0-0.8); MONO % 9.2 % (0.0-10.0); NEUT # 4.6 K/uL (1.8-7.0); NEUT % 54.3 % (50.0-75.0); NRBC % 0.2 % (0.0-2.0); RBC 5.29 Mil/uL (4.40-5.90); RED CELL DISTRIBUTION WIDTH 13.8 % (11.5-14.5); WHITE BLOOD COUNT 8.5 K/uL (4.8-10.8)
[2017-11-08 01:04] LABS: ALB/GLOB RATIO 1.7 (1.0-2.1); ALBUMIN 4.7 g/dL (3.5-5.0); ALT/SGPT 23 U/L (21-72); AST/SGOT 13 U/L (17-59); BLOOD UREA NITROGEN 14 mg/dL (9-20); CALCIUM 9.4 mg/dl (8.6-10.4); GFR AFRICAN-AMERICAN > 60; GFR NON-AFRICAN AMERICAN > 60
[2017-11-08 01:49] LABS: BARBITURATES, UR NEGATIVE (NEGATIVE); PHENCYCLIDINE, UR NEGATIVE (NEGATIVE)
[2017-11-08 01:56] LABS: URINE BILIRUBIN NEGATIVE (NEGATIVE); URINE BLOOD NEGATIVE (NEGATIVE); URINE CLARITY Clear (Clear); URINE COLOR Yellow (YELLOW); URINE GLUCOSE (UA) NORMAL (Normal); URINE LEUKOCYTE ESTERASE TRACE Leu/uL (Negative); URINE PROTEIN NEGATIVE (NEGATIVE); URINE UROBILINOGEN NORMAL mg/dL (0.2-1.0)
[2017-11-08 02:12] LABS: BENZODIAZEPINES, UR POSITIVE (NEGATIVE); OPIATES, UR POSITIVE (NEGATIVE)
--- NOTE | 2017-11-08 02:21 | PCM.BM ---
<Rm Morrissey - Last Filed: 11/08/17 02:20> Treatment Plan Problems - Problems identified on initial assessmt potential for opiate abuse Date Initiated: 11/08/17 Time Initiated: 02:20 Status: Active Treatment assets and liabiliti Patient Assests: adapts well, cooperative, ADL independent, physically healthy, negotiates basic needs Patient Liabilities: substance abuse - Milieu Protocol Maintain good personal hygiene: daily Encourage regular showers, daily Remind patient to perform daily oral care, daily Assist patient to perform ADL's Conduct patient checks and document Observation sheet: Q15 minutes Maintain personal safety: every shift Educate patient to report safety concerns to staff, every shift Monitor environment for contraband/sharps Medication safety: Monitor for expected outcome, potential side effects: every shift, Assess barriers to learning: every shift, Assess readiness for medication education: every shift <Nilda Cisneros - Last Filed: 11/11/17 14:13> - Diagnosis (1) Opioid use disorder, severe, dependence Status: Acute Interventions: 11/08 * Assess 7x/week regarding severity of withdrawal * Educate regarding risks, benefits, side effects and alternatives of medications * Use Motivational Interviewing for abstinence * Use CBT for relapse prevention * Medication management for withdrawal symptoms * Encourage medication assisted treatment 14:13
[2017-11-08] MEDS ORDERED: guaiFENesin DM 200 mg-20 mg/10 ml UD PO PRN (03:35)
[2017-11-08] MEDS ORDERED: Aluminum Hydroxide/Magnesium Hydroxide Susp (30 mL) PO PRN (03:35)
[2017-11-08] MEDS ORDERED: Benzocaine/Menthol (Cepacol) Lozenge PO PRN (03:35)
[2017-11-08 13:22] VITALS: RESP 18
--- NOTE | 2017-11-08 14:14 | PCM.PSYCH ---
Initial Psychiatric Evaluation - Initial Psychiatric Evaluation Type of Admission: Voluntary Legal Status: Capacity Chief Complaint (in patient's own words): "I need detox again" History of Present Illness and Precipitating Events: Pt is seen, chart reviewed, and case discussed. Patient is a 47 y/o male, single with 3 adult children. 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 He is known from a previous admission. He is here for heroin detox, uses about 10 bags a day intranasal for the past 24 years. he describes withdrawal sxs, which are getting worse slowly Also admits to using Xanax, 4-5 of the 2 mg a day, but sometimes skips a day. Denies any seizures, but has had wdw sxs. Smokes pack of cigarettes a day. Denies drinking alcohol. Pt has been to detox multiple times in the past, incl. [facility] and wants to go to [facility] after detox. Psych hx: denies history but feels depressed and more anxious, has BRAULIO very likely Medical hs: asthma, herniated discs in the lower back Family psych hx: denies Current Medications: Active Medications Generic Name Dose Route Start Last Admin Trade Name Freq PRN Reason Stop Dose Admin Acetaminophen 650 mg 11/08/17 03:35 Tylenol 325mg Tab PO Q4H PRN Pain, severe (8-10) Al Hydrox/Mg Hydrox/Simethicone 30 ml 11/08/17 03:35 Maalox 30 Ml PO TID PRN Indigestion / Heartburn Benzocaine/Menthol 1 barb 11/08/17 03:35 Cepacol Sore Throat PO QID PRN Sore Throat Chlordiazepoxide 25 mg 11/08/17 10:35 Librium PO Q4H PRN Alcohol Withdrawal Chlordiazepoxide 25 mg 11/08/17 12:00 11/08/17 12:40 Librium PO 11/13/17 11:59 25 mg Q6 PIOTR Administration Taper Clonidine HCl 0.1 mg 11/08/17 03:35 Catapres PO Q8 PRN COWS Score More or Equal to 5 Guaifenesin/Dextromethorphan 10 ml 11/08/17 03:35 Robitussin Dm PO Q4H PRN Cough and congestion Hydroxyzine HCl 25 mg 11/08/17 03:41 Atarax PO 11/15/17 03:42 Q6 PRN Anxiety Loperamide HCl 2 mg 11/08/17 03:35 Imodium PO Q8 PRN Diarrhea Nicotine 1 patch 11/08/17 10:00 11/08/17 09:56 Nicoderm Cq TD Not Given DAILY PIOTR Ondansetron HCl 4 mg 11/08/17 03:35 Zofran Tab PO Q8 PRN Nausea/Vomiting Pseudoephedrine HCl 60 mg 11/08/17 03:35 Sudafed Tab PO QID PRN Nasal/Sinus Congestion Trazodone HCl 100 mg 11/08/17 03:30 11/08/17 03:31 Desyrel PO 11/12/17 03:31 100 mg HS PIOTR Administration Past Psychiatric History - Past Psychiatric History Previous Treatment History: None Pertinent Medical Hx (Current Medical&Sleep Prob, Allergies): Allergies Allergy/AdvReac Type Severity Reaction Status Date / Time No Known Allergies Allergy Verified 09/27/16 16:28 Albuterol HFA [Ventolin HFA 90 mcg/actuation (8 g)] 1 puff INH PRN PRN 01/27/15 Gabapentin [Neurontin] 300 mg PO TID #90 cap 02/25/17 QUEtiapine [SEROquel] 100 mg PO HS #30 tab 02/25/17 Review of Systems - Psychiatric Psychiatric: Abnormal Sleep Pattern, Anhedonia, Anxiety, Change in Appetite, Depression, Difficulty Concentrating, Irritability. absent: Hallucinations, Homicidal Ideation, Paranoia, Suicidal Ideation Mental Status Examination - Personal Presentation Personal Presentation: Looks older than stated age - Affect Affect: Constricted - Motor Activity Motor Activity: Calm - Reliability in Providing Information Reliability in Providing Information: Good - Speech Speech: Organized - Mood Mood: Depressed, Anxious - Formal Thought Process Formal Thought Process: No Impairment - Cognitive Functions Orientation: Person, Place, Situation, Time Sensorium: Alert Attention/Concentration: Attentive Abstract Thinking: Magna Judgement: Intact, as evidence by: Insight regarding need for hospitalization Memory: Recent intact, as evidence by: Ability to recall events of the day, Remote intact, as evidenced by: Abilit to recall sig. life events - Risk Risk: Withdrawal, Diminished functioning - Strength & Assets Inventory Strength & Assets Inventory: Cooperative - Limitations Limitations: Living alone DSM 5 DX - DSM 5 DSM 5 Diagnosis: Opioid withdrawal Opioid use disorder, severe Sedative hypnotic anxiolytic use disorder, severe BRAULIO Depressive disorder, unspecified r/o substance-induced dep. - Recommended/Plan of Treatment Treatment Recommendations and Plan of Treatment: Taper with Subutex and Librium for opioids and benzos respectively Gabapentin for augmentation As needed medications All risks, benefits and alternatives of the meds discussed, and the pt agreed and understood. Attend groups and activities Supportive therapy and psychoeducation [place] for abstinence CBT for relapse prevention Encourage MAT Refer to rehab or IOP, and self-help groups Smoking cessation with [place] Nicotine patch if needed Encourage family and friend's involvement in post-detox care 34min Projected ELOS: 5-6 days Prognosis: good w treatment - Smoking Cessation Smoking Cessation Initiated: Yes
[2017-11-08] MEDS ORDERED: Buprenorphine Hydrochloride 2 mg SL ONE ×2 (20:03→21:00)
[2017-11-09] MEDS: Buprenorphine Hydrochloride 2 mg SL SCH (10:13)
--- NOTE | 2017-11-09 11:45 | PCM.PYCHPN ---
Psychiatric Progress Note - Psychiatric Progress Note Patient seen today, length of contact: 16 min Patient Chief Complaint: I am withdrawing.' Problems Identified/Issues Discussed: Patient seen and evaluated, chart reviewed and discussed with the nurse. He reports withdrawal symptoms including anxiety, headaches, cramps and sweating. He denies any manic symptoms or AVH or any paranoia. He deneis any suicidal ideation or any homicidal ideation. Patient is compliant with medications and denies any side effects. Symptoms are improving but need more time to stabilize. Support and psychoeducation given. Medication Change: Yes Medical Record Reviewed: Yes Mental Status Examination - Cognitive Function Orientation: Person, Place, Situation, Time Memory: Intact Attention: WNL Concentration: Poor Association: WNL Fund of Knowledge: Poor - Mood Mood: Depressed, Anxious - Affect Affect: Constricted - Speech Speech: Soft - Formal Thought Process Formal Thought Process: No Impairment - Suicidal Ideation Suicidal Ideation: No - Homicidal Ideation Homicidal Ideation: No Goal/Treatment Plan - Goal/Treatment Plan Need for Continued Stay: Severe depression anxiety, Severe functional impairment Progress Toward Problem(s) and Goals/Treatment Plan: Opioid withdrawal Opioid use disorder, severe Sedative hypnotic anxiolytic use disorder, severe BRAULIO Depressive disorder, unspecified r/o substance-induced dep. Taper with Subutex and Librium for opioids and benzos respectively Gabapentin for augmentation As needed medications All risks, benefits and alternatives of the meds discussed, and the pt agreed and understood. Attend groups and activities Supportive therapy and psychoeducation [place] for abstinence CBT for relapse prevention Encourage MAT Refer to rehab or IOP, and self-help groups Smoking cessation with [place] Nicotine patch if needed Encourage family and friend's involvement in post-detox care
[2017-11-10] MEDS: Buprenorphine Hydrochloride 2 mg SL SCH (09:41)
--- NOTE | 2017-11-10 15:04 | RAD ---
Date of service: 11/10/2017 HISTORY: rehab placement COMPARISON: No prior. TECHNIQUE: Chest PA and lateral FINDINGS: LUNGS: No active pulmonary disease. PLEURA: No significant pleural effusion identified. No pneumothorax apparent. CARDIOVASCULAR: Normal. OSSEOUS STRUCTURES: No significant abnormalities. VISUALIZED UPPER ABDOMEN: Normal. OTHER FINDINGS: None. IMPRESSION: No acute cardiopulmonary disease appreciated.
--- NOTE | 2017-11-10 16:58 | PCM.PYCHPN ---
Psychiatric Progress Note - Psychiatric Progress Note Patient seen today, length of contact: 16 min Patient Chief Complaint: I am feeling little better.' Problems Identified/Issues Discussed: Patient seen and evaluated, chart reviewed and discussed with the nurse. As per staff, he in feeling little better. He reports some improvement in the withdrawal symptoms but still anxiety, headaches, and sweating. He denies any manic symptoms or AVH or any paranoia. He denies any suicidal ideation or any homicidal ideation. Patient is compliant with medications and denies any side effects. Symptoms are improving but need more time to stabilize. Support and psychoeducation given. Medication Change: Yes Medical Record Reviewed: Yes Mental Status Examination - Cognitive Function Orientation: Person, Place, Situation, Time Memory: Intact Attention: WNL Concentration: WNL Association: WNL Fund of Knowledge: Poor - Mood Mood: Depressed, Anxious - Affect Affect: Constricted - Speech Speech: Soft - Formal Thought Process Formal Thought Process: No Impairment - Suicidal Ideation Suicidal Ideation: No - Homicidal Ideation Homicidal Ideation: No Goal/Treatment Plan - Goal/Treatment Plan Need for Continued Stay: Severe depression anxiety, Severe functional impairment Progress Toward Problem(s) and Goals/Treatment Plan: Opioid withdrawal Opioid use disorder, severe Sedative hypnotic anxiolytic use disorder, severe BRAULIO Depressive disorder, unspecified r/o substance-induced dep. Taper with Subutex and Librium for opioids and benzos respectively Gabapentin for augmentation As needed medications All risks, benefits and alternatives of the meds discussed, and the pt agreed and understood. Attend groups and activities Supportive therapy and psychoeducation [place] for abstinence CBT for relapse prevention Encourage MAT Refer to rehab or IOP, and self-help groups Smoking cessation with [place] Nicotine patch if needed Encourage family and friend's involvement in post-detox care
[2017-11-11] MEDS ORDERED: Buprenorphine Hydrochloride 2 mg SL ONE (09:02)
[2017-11-11 09:21] VITALS: BP 139/89; PULSE 74; TEMP 97.7; O2SAT 100
--- NOTE | 2017-11-11 09:38 | PCM.PYCHDC ---
Mental Status Examination - Mental Status Examination Orientation: Person, Place, Situation, Time Memory: Intact Mood: Anxious Affect: Constricted Speech: Appropriate Attention: WNL Concentration: WNL Association: WNL Fund of Knowledge: WNL Formal Thought Process: No Impairment Suicidal Ideation: No Current Homicidal Ideation?: No Discharge Summary - Discharge Note Reason for Hospitalization: opioid detox Consultations:: List each consultation separately and include: 1. Reason for request. 2. Findings. 3. Follow-up Summary of Hospital Course include:: 1. Description of specific treatment plan utilized for patients during their course of treatmen. 2. Summarize the time- course for resolution of acute symptoms and/or regressed behaviors. 3. Describe issues identified and worked on during hospitalization. 4. Describe medication utilized. 5. Describe medical problems identified and treated. 6. Reassessment of suicide risk Summary of Hospital Course: Pt is seen, chart reviewed, and case discussed. On admission: Patient is a 47 y/o male, single with 3 adult children. 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 He is known from a previous admission. He is here for heroin detox, uses about 10 bags a day intranasal for the past 24 years. he describes withdrawal sxs, which are getting worse slowly Also admits to using Xanax, 4-5 of the 2 mg a day, but sometimes skips a day. Denies any seizures, but has had wdw sxs. Smokes pack of cigarettes a day. Denies drinking alcohol. Pt has been to detox multiple times in the past, incl. [facility] and wants to go to [facility] after detox. Psych hx: denies history but feels depressed and more anxious, has BRAULIO very likely Medical hs: asthma, herniated discs in the lower back Family psych hx: denies Hospital course: The pt was admitted and started on treatment with psychotherapy, support, psychoeducation and medications. SD and CBT used. The pt attended groups and activities, as well as milieu therapy. All the risks and benefits of medications are discussed and the patient understood and agreed. The pt improved with the treatments provided. After care discussed with the patient. He went to [facility] in but he left a day early., so instead of 4 mg he got 2 mg today - Final Diagnosis (DSM 5) Condition upon Discharge: STABLE DSM 5: Opioid withdrawal Opioid use disorder, severe Sedative hypnotic anxiolytic use disorder, severe BRAULIO Depressive disorder, unspecified r/o substance-induced dep. Disposition: HOME/ ROUTINE Follow-up Treatment Plan: Continue below medications after discharge. Follow after care plan as discussed. Use relapse prevention skills Return to ER or call 911 if suicidal, homicidal or symptoms relapse. Stay away from stress, alcohol and drugs. See primary doctor regularly and get labs. Prescriptions/Medication Reconciliation: traZODone [Desyrel] 100 mg PO HS #30 tab - Smoking Cessation Smoking Cessation Medication prescribed: No
== END 2017-11-11 09:45 | disposition home or self-care (01) | DRG 745 ==
LOC: C.ER 23:52 → C.7D 11-08 01:51
PROVIDERS: ADMIT Psychiatry & Neurology Psychiatry; ATTEND Psychiatry & Neurology Psychiatry
PROC: GZ56ZZZ Individual Psychotherapy, Supportive (ICD-10-PCS; principal; 2017-11-08)
DX: F11.23 Opioid dependence with withdrawal (principal); F17.210 Nicotine dependence, cigarettes, uncomplicated; F41.9 Anxiety disorder, unspecified; J45.909 Unspecified asthma, uncomplicated; F32.9 Major depressive disorder, single episode, unspecified; F19.10 Other psychoactive substance abuse, uncomplicated

== ENCOUNTER 2017-12-03 22:43 | Emergency (ER) | payer MEDICAID, OTHER ==
[2017-12-03 22:43] VITALS: BMI 26.9
[2017-12-03 22:52] VITALS: BP 120/85; PULSE 86; RESP 18; TEMP 98; O2SAT 98
--- NOTE | 2017-12-04 00:10 | C.PDOC ---
History Of Present Illness 47 year old male is brought to the ED by EMS for heroin abuse. Patient was recently discharged from detox 3 weeks ago. Patient started using heroin again and observed him using today and had an argument called 911. Patient denies SI/HI, hallucinations, depression, other medical complaints. Time Seen by Provider: 12/03/17 23:18 Chief Complaint (Nursing): Substance Abuse History Per: Patient, Family History/Exam Limitations: intoxication Onset/Duration Of Symptoms: Hrs Current Symptoms Are (Timing): Still Present Suicide/Self Injury Attempted (Context): None Modifying Factor(s): Other (Heroin) Associated Symptoms: denies: Depression, Suicidal Thoughts, Suicidal Plan Recent travel outside of the [place]: No Additional History Per: Patient, Family Past Medical History Reviewed: Historical Data, Nursing Documentation, Vital Signs Vital Signs: Last Vital Signs Temp 98 F 12/03/17 22:50 Pulse 86 12/03/17 22:50 Resp 18 12/03/17 22:50 BP 120/85 12/03/17 22:50 Pulse Ox 98 12/04/17 00:19 - Medical History PMH: Asthma, Bipolar Disorder Denies: Atrial Fibrillation, Cardia Arrhythmia, CHF, Diabetes, Hepatitis, HIV , HTN, Hypercholesterolemia, Mitral Valve Prolapse, Peripheral Edema, Seizures, Sexually Transmitted Disease Surgical History: No Surg Hx Denies: Pacemaker - [facility] Procedures DETOXIFICATION SERVICES FOR SUBSTANCE ABUSE TREATMENT (02/21/17) GROUP BUTTON MACHINE OPERATOR FOR SUBSTANCE ABUSE TREATMENT, PSYCHOEDUCATION (02/21/17) GROUP BUTTON MACHINE OPERATOR FOR SUBSTANCE ABUSE, COGNITIVE BEHAVIORAL (02/21/17) INDIV PSYCHOTHERAPY FOR SUBSTANCE ABUSE TREATMENT, SUPPORT (02/21/17) INDIV PSYCHOTHERAPY FOR SUBSTANCE ABUSE, COGNITIV BEHAVIORAL (02/21/17) INDIV PSYCHOTHERAPY FOR SUBSTANCE ABUSE, PSYCHOEDUCATION (02/21/17) INDIVIDUAL PSYCHOTHERAPY, SUPPORTIVE (11/08/17) MEDS MGMT FOR SUBSTANCE ABUSE TREATMENT, CLONIDINE (09/15/16) PHARMACOTHERAPY FOR SUBSTANCE ABUSE TREATMENT, CLONIDINE (09/15/16) Family History: States: Unknown Family Hx - Social History Hx Alcohol Use: No Hx Substance Use: Yes - Immunization History Hx Tetanus Toxoid Vaccination: No Hx Influenza Vaccination: No Hx Pneumococcal Vaccination: No Review Of Systems Constitutional: Negative for: Fever, Chills Cardiovascular: Negative for: Chest Pain, Palpitations Respiratory: Negative for: Shortness of Breath Gastrointestinal: Negative for: Nausea, Vomiting Skin: Negative for: Rash Psych: Negative for: Depression, Suicidal ideation Physical Exam - Physical Exam Appears: Non-toxic, No Acute Distress Skin: Normal Color, Warm, Dry Head: Atraumatic, Normacephalic Eye(s): bilateral: Normal Inspection Neck: Normal ROM, Supple Chest: Symmetrical Cardiovascular: Rhythm Regular Respiratory: Normal Breath Sounds, No Rales, No Rhonchi, No Wheezing Gastrointestinal/Abdominal: Soft, No Tenderness, No Guarding, No Rebound Extremity: Normal ROM, No Tenderness, No Swelling Neurological/Psych: Oriented x3, Normal Speech Gait: Steady ED Course And Treatment O2 Sat by Pulse Oximetry: 98 (ON RA) Pulse Ox Interpretation: Normal Progress Note: Crisis states patient is not elegible for detox after being discharged. Patient is stable for D/C with information for outpatient resources. Disposition Counseled Patient/Family Regarding: Diagnosis, Need For Followup - Disposition Referrals: Corporate Director Of Human Resources Service [Outside] [facility] [Outside] Disposition: HOME/ ROUTINE Disposition Time: 00:18 Condition: STABLE Additional Instructions: Please follow up in psychiatry clinic Return to ER if any concerns Instructions: Drug Abuse and Drug Addiction (DC) Forms: [employer] (Colombian) - Clinical Impression Clinical Impression: Drug abuse - PA / TRANSIT BUS OPERATOR / Resident Statement MD/DO has reviewed & agrees with the documentation as recorded. - Scribe Statement The provider has reviewed the documentation as recorded by the Scribe Yaron Yousif All medical record entries made by the Scribe were at my direction and personally dictated by me. I have reviewed the chart and agree that the record accurately reflects my personal performance of the history, physical exam, medical decision making, and the department course for this patient. I have also personally directed, reviewed, and agree with the discharge instructions and disposition.
== END 2017-12-04 00:35 | disposition home or self-care (01) ==
LOC: SUPCPDRO 22:43 → C.ER 22:43
DX: F11.10 Opioid abuse, uncomplicated (principal)

== ENCOUNTER 2018-01-05 00:53 | Inpatient (IN) | payer OTHER ==
[2018-01-05 00:54] VITALS: BMI 26.9
[2018-01-05] MEDS ORDERED: Aspirin 325 mg EC Tablets PO STA (01:13)
--- NOTE | 2018-01-05 01:13 | C.PDOC ---
History Of Present Illness Patient presents with chest pain after doing heroin. Denies any cocaine use. Dull aching pressure., non radiating. No f/c/n/v Time Seen by Provider: 01/05/18 01:12 Chief Complaint (Nursing): Chest Pain History Per: Patient History/Exam Limitations: no limitations Onset/Duration Of Symptoms: Hrs Current Symptoms Are (Timing): Still Present Context: Other Severity: Moderate Pain Scale Rating Of: 4 Quality: Dull, Aching Associated Symptoms: denies: Nausea Modifying Factors: None Exacerbating Factors: None Alleviating Factors: None Recent travel outside of the [place]: No Additional History Per: Patient Past Medical History Reviewed: Historical Data, Nursing Documentation, Vital Signs Vital Signs: Last Vital Signs Temp 98.3 F 01/05/18 00:56 Pulse 87 01/05/18 00:56 Resp 22 01/05/18 00:56 BP 112/74 01/05/18 00:56 Pulse Ox 100 01/05/18 00:56 - Medical History PMH: Asthma, Bipolar Disorder, Depression Denies: Atrial Fibrillation, Cardia Arrhythmia, CHF, Diabetes, Hepatitis, HIV, HTN, Hypercholesterolemia, Mitral Valve Prolapse, Peripheral Edema, Seizures, Sexually Transmitted Disease Surgical History: Denies: Pacemaker - [facility] Procedures DETOXIFICATION SERVICES FOR SUBSTANCE ABUSE TREATMENT (02/21/17) GROUP DEPLOYMENT SPECIALIST FOR SUBSTANCE ABUSE TREATMENT, PSYCHOEDUCATION (02/21/17) GROUP DEPLOYMENT SPECIALIST FOR SUBSTANCE ABUSE, COGNITIVE BEHAVIORAL (02/21/17) INDIV PSYCHOTHERAPY FOR SUBSTANCE ABUSE TREATMENT, SUPPORT (02/21/17) INDIV PSYCHOTHERAPY FOR SUBSTANCE ABUSE, COGNITIV BEHAVIORAL (02/21/17) INDIV PSYCHOTHERAPY FOR SUBSTANCE ABUSE, PSYCHOEDUCATION (02/21/17) INDIVIDUAL PSYCHOTHERAPY, SUPPORTIVE (11/08/17) MEDS MGMT FOR SUBSTANCE ABUSE TREATMENT, CLONIDINE (09/15/16) PHARMACOTHERAPY FOR SUBSTANCE ABUSE TREATMENT, CLONIDINE (09/15/16) Family History: States: No Known Family Hx - Social History Hx Alcohol Use: No Hx Substance Use: Yes - Immunization History Hx Tetanus Toxoid Vaccination: No Hx Influenza Vaccination: No Hx Pneumococcal Vaccination: No Review Of Systems Constitutional: Negative for: Fever, Chills Eyes: Negative for: Redness ENT: Negative for: Throat Pain Cardiovascular: Positive for: Chest Pain Respiratory: Negative for: Shortness of Breath Gastrointestinal: Negative for: Abdominal Pain Genitourinary: Negative for: Dysuria Musculoskeletal: Negative for: Back Pain Skin: Negative for: Rash Neurological: Negative for: Weakness Psych: Negative for: Anxiety Physical Exam - Physical Exam Appears: Non-toxic Skin: Warm, Dry Head: Normacephalic Eye(s): bilateral: Normal Inspection Oral Mucosa: Moist Neck: Supple Chest: Symmetrical Cardiovascular: Rhythm Regular Respiratory: No Rales, No Rhonchi, No Wheezing Gastrointestinal/Abdominal: Soft, No Tenderness, No Distention Back: Normal Inspection Extremity: Normal ROM Extremity: Bilateral: Atraumatic Pulses: Left Dorsalis Pedis: Normal, Right Dorsalis Pedis: Normal Neurological/Psych: Oriented x3 Gait: Steady ED Course And Treatment - Laboratory Results Result Diagrams: 01/05/18 01:19 01/05/18 01:19 ECG: Interpreted By Me, Viewed By Me ECG Rhythm: Sinus Rhythm (82), Nonspecific Changes O2 Sat by Pulse Oximetry: 100 Pulse Ox Interpretation: Normal - Radiology CXR: Interpreted by Me, Viewed By Me CXR Interpretation: No: Infiltrates, Fracture, Pnemothorax Disposition Discussed With .: Richardson Zhang Comment: accepted the pt on his servie and took over the care at 3 AM Doctor Will See Patient In The: Hospital Counseled Patient/Family Regarding: Studies Performed, Diagnosis - Disposition Disposition: HOSPITALIZED Disposition Time: 01:13 Condition: FAIR Forms: [facility] ([place]auan) - POA Present On Arrival: Poor Glycemic Control - Clinical Impression Clinical Impression: Chest pain, Heroin abuse Decision To Admit - Pt Status Changed To: Hospital Disposition Of: Inpatient - Admit Certification Admit to Inpatient:: After my assessment, the patient will require hospitalization for at least two midnights. This is because of the severity of symptoms shown, intensity of services needed, and/or the medical risk in this patient being treated as an outpatient. - InPatient: Physician Admission Certification: I certify that this patient requires 2 or more midnights of care for the following reason:: After my assessment, the patient will require hospitalization for at least two midnights. This is because of the severity of symptoms shown, intensity of services needed, and/or the medical risk in this patient being treated as an outpatient. - . Bed Request Type: Telemetry Admitting Physician: Richardson Zhang Patient Diagnosis: Chest pain, Heroin abuse
[2018-01-05] MEDS ORDERED: Aspirin 325 mg EC Tablets PO ONE (01:21)
[2018-01-05 01:23] LABS: BASO # 0.1 K/uL (0.0-0.2); BASO % 1.5 % (0.0-2.0); EOS # 0.3 K/uL (0.0-0.7); EOS % 4.1 % (0.0-4.0); HEMOGLOBIN 13.2 g/dL (12.0-18.0); LYMPH # 1.8 K/uL (1.0-4.3); LYMPH % 24.2 % (20.0-40.0); MEAN CELL VOLUME 81.6 fL (80.0-94.0); MEAN CORPUSCULAR HEMOGLOBIN 27.3 pg (27.0-31.0); MEAN CORPUSCULAR HGB CONC 33.5 g/dL (33.0-37.0); MEAN PLATELET VOLUME 8.1 fL (7.2-11.7); MONO # 0.8 K/uL (0.0-0.8); MONO % 10.7 % (0.0-10.0); NEUT # 4.4 K/uL (1.8-7.0); NEUT % 59.5 % (50.0-75.0); RBC 4.84 Mil/uL (4.40-5.90); RED CELL DISTRIBUTION WIDTH 14.3 % (11.5-14.5); WHITE BLOOD COUNT 7.4 K/uL (4.8-10.8)
[2018-01-05 01:30] LABS: PROTHROMBIN TIME 10.8 SECONDS (9.7-12.2)
[2018-01-05 01:36] LABS: ALB/GLOB RATIO 1.5 (1.0-2.1); ALBUMIN 3.9 g/dL (3.5-5.0); ALT/SGPT 35 U/L (21-72); AST/SGOT 17 U/L (17-59); BLOOD UREA NITROGEN 16 mg/dL (9-20); CALCIUM 9.1 mg/dl (8.6-10.4); GFR NON-AFRICAN AMERICAN > 60
[2018-01-05 01:45] LABS: URINE BILIRUBIN NEGATIVE (NEGATIVE); URINE BLOOD NEGATIVE (NEGATIVE); URINE CLARITY Clear (Clear); URINE COLOR Yellow (YELLOW); URINE GLUCOSE (UA) NORMAL (Normal); URINE LEUKOCYTE ESTERASE NEG Leu/uL (Negative); URINE PROTEIN NEGATIVE (NEGATIVE)
[2018-01-05 01:48] LABS: B-TYPE NATRIURETIC PEPTIDE 49.2 pg/mL (0-450)
[2018-01-05 01:59] LABS: BARBITURATES, UR NEGATIVE (NEGATIVE); PHENCYCLIDINE, UR NEGATIVE (NEGATIVE)
[2018-01-05 02:07] LABS: BENZODIAZEPINES, UR POSITIVE (NEGATIVE); OPIATES, UR POSITIVE (NEGATIVE)
[2018-01-05 12:10] LABS: CK-MB 1.02 ng/mL (0.0-3.38)
--- NOTE | 2018-01-05 12:45 | RAD ---
Date of service: 01/05/2018 PROCEDURE: CHEST RADIOGRAPH, 1 VIEW HISTORY: chest pain COMPARISON: 11/10/2017. FINDINGS: LUNGS: Clear. PLEURA: No pneumothorax or pleural fluid seen. CARDIOVASCULAR: Normal. OSSEOUS STRUCTURES: No significant abnormalities. VISUALIZED UPPER ABDOMEN: Normal. OTHER FINDINGS: None. IMPRESSION: No active disease.No significant interval change compared to the prior examination(s). Concordant results with the preliminary interpretation rendered by the emergency department physician procedure.
[2018-01-05 17:19] LABS: CK-MB 0.89 ng/mL (0.0-3.38)
[2018-01-05] MEDS ORDERED: Albuterol-Ipratrop 3 mg / 0.5 (3 ml) UD INH PRN (20:00)
[2018-01-06 00:53] VITALS: BP 128/89
--- NOTE | 2018-01-06 08:17 | HP ---
HISTORY OF PRESENT ILLNESS: The patient admitted to the hospital with a chief complaint of heroin abuse, asthma. The patient came to the ER, advised admission. The patient has a history of heroin abuse, asthma. PHYSICAL EXAMINATION: GENERAL: The patient is awake, sleepy, tired, fatigued. VITAL SIGNS: Temperature 98, pulse 90. HEENT: Within normal limits. NECK: Supple. CHEST: Symmetrical. HEART: Regular. ABDOMEN: Soft. EXTREMITIES: No edema. ASSESSMENT AND PLAN: The patient suffers from heroin abuse, asthma. The patient on bed rest, bronchodilators psych consult. Richardson Zhang MD
[2018-01-06 08:57] VITALS: RESP 18; TEMP 99.4; O2SAT 98
--- NOTE | 2018-01-06 10:45 | CP.PCM.PN ---
Subjective - Date & Time of Evaluation Date of Evaluation: 01/06/18 Time of Evaluation: 10:41 - Subjective Subjective: PGY2 Medicine Note for Dr. Zhang Patient seen and examined this morning at bedside. No acute events overnight. Patient is no longer experiencing chest pain. He is feeling well. He is requesting detox. He is worried that his is going to leave him because of his addiction and wants to attempt to get clean. He has no complaints at this time. Denies fevers, chills, nausea, vomiting, diarrhea, constipation, chest pain, shortness of breath, abdominal pain, numbness or tingling. Objective - Vital Signs/Intake and Output Vital Signs (last 24 hours): Temp Pulse Resp BP Pulse Ox 99.4 F 90 18 128/89 98 01/06/18 07:00 01/06/18 07:00 01/06/18 07:00 01/05/18 23:30 01/06/18 07:00 - Medications Medications: Current Medications Albuterol/Ipratropium (Duoneb 3 Mg/0.5 Mg (3 Ml) Ud) 3 ml INH RQ4 PRN PRN Reason: Shortness of Breath Influenza Virus Vaccine (Fluzone Quad [id number]) 60 mcg IM .ONCE ONE Stop: 01/07/18 10:01 Lorazepam (Ativan) 1 mg PO TID PRN PRN Reason: Anxiety Last Admin: 01/05/18 22:50 Dose: 1 mg - Labs Labs: 01/05/18 01:19 01/05/18 01:19 PT 10.8 SECONDS (9.7-12.2) 01/05/18 01:19 INR 1.0 01/05/18 01:19 APTT 32 SECONDS (21-34) 01/05/18 01:19 - Constitutional Appears: Non-toxic, No Acute Distress - Head Exam Head Exam: ATRAUMATIC, NORMOCEPHALIC - Eye Exam Eye Exam: Normal appearance - ENT Exam ENT Exam: Mucous Membranes Moist - Respiratory Exam Respiratory Exam: Clear to Ausculation Bilateral, NORMAL BREATHING PATTERN. absent: Accessory Muscle Use, Chest Wall Tenderness, Rales, Rhonchi, Wheezes, Respiratory Distress - Cardiovascular Exam Cardiovascular Exam: REGULAR RHYTHM, +S1, +S2 - GI/Abdominal Exam GI & Abdominal Exam: Soft. absent: Distended, Firm, Guarding, Rigid, Tenderness - Extremities Exam Extremities Exam: absent: Calf Tenderness, Pedal Edema - Neurological Exam Neurological Exam: Alert, Awake, Oriented x3 - Psychiatric Exam Psychiatric exam: Normal Affect, Normal Mood - Skin Skin Exam: Dry, Warm Assessment and Plan - Assessment and Plan (Free Text) Plan: Chest Pain Resolved Troponin negative x3 Pro BNP 49.2 Medications: * Duonebs 3mL INH q4h prn Heroin Abuse Psych consulted Last reported use on 01/04 - 1 bag Utox positive for Opiates and Benzos Ativan 1mg PO TID prn Patient is medically stable for transfer to Detox pending psych evaluation. Patient is refusing detox and states he would like to be discharged home today. Patient was discharged on 01/06 with the following instructions. Patient is to be discharged home per Dr. Zhang. Patient is to follow up with his primary care physician within 2-3 days. Patient is to follow up with Dr. Pan, Psychology, within 1 week. Patient has not been given any new prescriptions. He is to continue taking his medications as previously prescribed by his primary care physician. It was stressed to patient that he needs to avoid all illicit drugs, especially heroin, upon discharge. He was offered inpatient detox while here at [facility] but has declined. He states that he will look for inpatient rehab upon discharge. If patient experiences any new or worsening symptoms, he is to go to the nearest emergency department. All medical management per Dr. Leatha Becerra Stan PGY2
[2018-01-06 12:30] VITALS: PULSE 93
[2018-01-07] MEDS ORDERED: Influenza Vaccine 60 MCG/0.5 ML SYR (3 yr & up) IM ONE (10:00)
== END 2018-01-06 11:59 | disposition home or self-care (01) | DRG 745 ==
LOC: C.ER 00:53 → C.9E 03:00 → C.6T 04:29
PROVIDERS: ADMIT Internal Medicine Pulmonary Disease; ATTEND Internal Medicine Pulmonary Disease
DX: F11.10 Opioid abuse, uncomplicated (principal); F32.9 Major depressive disorder, single episode, unspecified; J45.909 Unspecified asthma, uncomplicated; F19.10 Other psychoactive substance abuse, uncomplicated

== ENCOUNTER 2018-03-14 20:26 | Emergency (ER) | payer SELFPAY ==
[2018-03-14 20:27] VITALS: BMI 26.9
[2018-03-14 20:42] VITALS: BP 115/73; PULSE 77; TEMP 97; O2SAT 99
--- NOTE | 2018-03-14 21:07 | C.PDOC ---
History Of Present Illness 47 y/o M p/w penis injury 1 week ago. Patient states he was having sexual intercourse with his when he states she went "up too far," and he thinks his penis was bent upwards more than normal. He states that since then, his penis, when erect, has a bend in it. He states the pain now is a 3/10. He denies any edema, hematoma, abnormal or bloody discharge, inability to urinate. Time Seen by Provider: 03/14/18 20:53 Chief Complaint (Nursing): Male Genitourinary Past Medical History Vital Signs: Last Vital Signs Temp 97 F L 03/14/18 20:39 Pulse 77 03/14/18 20:39 Resp 18 03/14/18 20:39 BP 115/73 03/14/18 20:39 Pulse Ox 99 03/14/18 20:39 - Medical History PMH: Asthma, Bipolar Disorder, Depression Denies: Atrial Fibrillation, Cardia Arrhythmia, CHF, Diabetes, Hepatitis, HIV, HTN, Hypercholesterolemia, Mitral Valve Prolapse, Peripheral Edema, Seizures, Sexually Transmitted Disease Surgical History: Denies: Pacemaker - [facility] Procedures DETOXIFICATION SERVICES FOR SUBSTANCE ABUSE TREATMENT (02/21/17) GROUP WHISTLE PUNK FOR SUBSTANCE ABUSE TREATMENT, PSYCHOEDUCATION (02/21/17) GROUP WHISTLE PUNK FOR SUBSTANCE ABUSE, COGNITIVE BEHAVIORAL (02/21/17) INDIV PSYCHOTHERAPY FOR SUBSTANCE ABUSE TREATMENT, SUPPORT (02/21/17) INDIV PSYCHOTHERAPY FOR SUBSTANCE ABUSE, COGNITIV BEHAVIORAL (02/21/17) INDIV PSYCHOTHERAPY FOR SUBSTANCE ABUSE, PSYCHOEDUCATION (02/21/17) INDIVIDUAL PSYCHOTHERAPY, SUPPORTIVE (11/08/17) MEDS MGMT FOR SUBSTANCE ABUSE TREATMENT, CLONIDINE (09/15/16) PHARMACOTHERAPY FOR SUBSTANCE ABUSE TREATMENT, CLONIDINE (09/15/16) Family History: States: Unknown Family Hx - Social History Hx Alcohol Use: Yes Hx Substance Use: Yes - Immunization History Hx Tetanus Toxoid Vaccination: No Hx Influenza Vaccination: No Hx Pneumococcal Vaccination: No Review Of Systems Except As Marked, All Systems Reviewed And Found Negative. Gastrointestinal: Negative for: Vomiting Genitourinary: Negative for: Dysuria, Hematuria, Penile Discharge, Scrotal Pain Physical Exam - Physical Exam Additional Physical Exam Comments: Gen: NAD Head: NC/AT Eyes: No icterus ENT: MMM CV: Regular rate Lungs: No accessory muscle use Abd: Soft, NT : Penis nonerect. No ecchymosis or hematoma seen. No urethral blood or discharge. No scrotal tenderness. No penile tenderness or edema Skin: No rash Extremities: No edema Neuro: Alert ED Course And Treatment O2 Sat by Pulse Oximetry: 99 Medical Decision Making Medical Decision Making: No indication for further emergent medical evaluation. Follow up with Urology. Disposition - Disposition Referrals: Luis Bah Jr., MD [Staff Provider] - Disposition: HOME/ ROUTINE Disposition Time: 21:05 Condition: STABLE Additional Instructions: The penis is most often hurt during sex. Injury to the penis is rare when it isn't erect because it is flexible. During an erection, blood flow in the arteries makes the penis firm. During forceful thrusting, the erect penis may slip out of the vagina and strike the partner instead of going back into the vagina. The penis may then bend sharply despite the erection. You may feel a sharp pain in the penis and maybe hear a "popping" sound. This is often followed by a rapid loss of the erection. The pain and sound are made by a tear in the tunica albuginea, which is stretched tightly during an erection. Urologists often call this injury a penile "fracture," even though there is no bone in the penis. The pain may last for a short time or it may continue. Blood can build up under the skin of the penis (hematoma), and may become swollen and badly bruised. Blood at the tip of the penis or in the urine is a sign of a serious injury to the urethra. The treatment for a penis fractured during sex is most often surgery. This treatment has lower rates of erectile dysfunction, and penile scarring and curvature. Surgery is done under anesthesia so no pain is felt. The most common surgery is to make a cut around the shaft near the head of the penis and pull back the skin to the base to check the inner surface. The surgeon will then remove blood clots to help find any tears in the tunica albuginea. Any tears are repaired before the skin is sewn back together. Forms: [employer] (Turkish) - Clinical Impression Clinical Impression: Penis injury
[2018-03-14 21:28] VITALS: RESP 16
== END 2018-03-14 21:26 | disposition home or self-care (01) ==
LOC: C.ER 20:26
DX: S39.94XA Unspecified injury of external genitals, initial encounter (principal); X58.XXXA Exposure to other specified factors, initial encounter

== ENCOUNTER 2018-04-12 23:24 | Emergency (ER) | payer SELFPAY ==
[2018-04-12 23:24] VITALS: BMI 26.9
[2018-04-12 23:31] VITALS: BP 117/69; PULSE 91; RESP 20; TEMP 98.2; O2SAT 99
--- NOTE | 2018-04-13 00:05 | C.PDOC ---
History Of Present Illness 47 y/o male presents to the ED complaining of right-sided low back pain s/p fall earlier today. Patient states while walking on the street, some siding fell from a building, hitting his head and causing him to fall onto his right side. He now complains of pain to his right posterior scalp, right lower back, and hip. Otherwise he denies any LOC, dizziness, visual changes, numbness, weakness, or other injury. Patient is ambulatory in the ED. Time Seen by Provider: 04/12/18 23:29 Chief Complaint (Nursing): Back Pain History Per: Patient History/Exam Limitations: no limitations Onset/Duration Of Symptoms: Hrs Current Symptoms Are (Timing): Still Present Associated Symptoms: None Exacerbating Factor(s): Movement Past Medical History Reviewed: Historical Data, Nursing Documentation, Vital Signs Vital Signs: Last Vital Signs Temp 98.2 F 04/12/18 23:29 Pulse 91 H 04/12/18 23:29 Resp 20 04/12/18 23:29 BP 117/69 04/12/18 23:29 Pulse Ox 99 04/12/18 23:29 - Medical History PMH: Asthma, Bipolar Disorder, Depression Denies: Atrial Fibrillation, Cardia Arrhythmia, CHF, Diabetes, Hepatitis, HIV, HTN, Hypercholesterolemia, Mitral Valve Prolapse, Peripheral Edema, Seizur es, Sexually Transmitted Disease Surgical History: Denies: Pacemaker - [facility] Procedures DETOXIFICATION SERVICES FOR SUBSTANCE ABUSE TREATMENT (02/21/17) GROUP PATENTED HOGSHEAD ASSEMBLER FOR SUBSTANCE ABUSE TREATMENT, PSYCHOEDUCATION (02/21/17) GROUP PATENTED HOGSHEAD ASSEMBLER FOR SUBSTANCE ABUSE, COGNITIVE BEHAVIORAL (02/21/17) INDIV PSYCHOTHERAPY FOR SUBSTANCE ABUSE TREATMENT, SUPPORT (02/21/17) INDIV PSYCHOTHERAPY FOR SUBSTANCE ABUSE, COGNITIV BEHAVIORAL (02/21/17) INDIV PSYCHOTHERAPY FOR SUBSTANCE ABUSE, PSYCHOEDUCATION (02/21/17) INDIVIDUAL PSYCHOTHERAPY, SUPPORTIVE (11/08/17) MEDS MGMT FOR SUBSTANCE ABUSE TREATMENT, CLONIDINE (09/15/16) PHARMACOTHERAPY FOR SUBSTANCE ABUSE TREATMENT, CLONIDINE (09/15/16) Family History: States: Unknown Family Hx - Social History Hx Alcohol Use: Yes Hx Substance Use: Yes - Immunization History Hx Tetanus Toxoid Vaccination: No Hx Influenza Vaccination: No Hx Pneumococcal Vaccination: No Review Of Systems Except As Marked, All Systems Reviewed And Found Negative. Constitutional: Negative for: Other (LOC) Cardiovascular: Negative for: Chest Pain Respiratory: Negative for: Shortness of Breath Musculoskeletal: Positive for: Back Pain (right lower), Leg Pain (right hip pain). Negative for: Neck Pain, Foot Pain Skin: Negative for: Lesions, Bruising Neurological: Negative for: Weakness, Numbness, Dizziness Physical Exam - Physical Exam Appears: Non-toxic, No Acute Distress Skin: Normal Color, Warm, Dry, No Rash Head: Atraumatic, Normacephalic, No Swelling, No Laceration Eye(s): bilateral: Normal Inspection Oral Mucosa: Moist Neck: Normal ROM, No Midline Cervical Tenderness, No Paracervical Tenderness, Supple Chest: Symmetrical Respiratory: No Accessory Muscle Use, Other (speaking in full sentences) Gastrointestinal/Abdominal: Bowel Sounds (normal), Soft, No Tenderness Back: No Vertebral Tenderness, Paraspinal Tenderness (right paralumbar tenderness) Extremity: Normal ROM, Tenderness (to the right posterior hip), Capillary Refill (less than 2 sec), No Deformity, No Swelling Pulses: Left Dorsalis Pedis: Normal, Right Dorsalis Pedis: Normal Neurological/Psych: Oriented x3, Normal Speech, Normal Motor Gait: Steady ED Course And Treatment O2 Sat by Pulse Oximetry: 99 (RA) Pulse Ox Interpretation: Normal - Other Rad Right hip XR X-Ray: Interpreted by Me, Viewed By Me Interpretation: (-) acute fracture or dislocation - CT Scan/US CT Head Other Rad Studies (CT/US): Read By Radiologist, Radiology Report Reviewed CT/US Interpretation: Name:LINSEY NELSON Exam Date:Apr 13, 2018 12:16:06 AM EST. Modality Type:CT. Description:CT - BRAIN. Gender:M Laterality:Not applicable. :74 Referring Physician:Elizabeth Quiñones (MARIANA). EXAM: CT Head without Intravenous Contrast. CLINICAL HISTORY: Head injury, headaches. TECHNIQUE: Axial computed tomography images of the head/brain without intravenous contrast. 1244 mGy-cm. COMPARISON: None provided. FINDINGS: BRAIN. No acute intraparenchymal hemorrhage. No mass lesion. No CT evidence for acute territorial infarct. No midline shift or extra-axial collections. VENTRICLES: No hydrocephalus. ORBITS: The orbits are unremarkable. SINUSES AND MASTOIDS: The paranasal sinuses and mastoid air cells are clear. BONES: No fracture. SOFT TISSUES: Unremarkable. IMPRESSION: No acute intracranial abnormality. . Electronically signed on Apr 13, 2018 1:12:44 AM EST by: Jayy Glasgow M.D., RICHARD Certified By ABR & CBC[facility]. Fellowship Trained MRI and CT Specialist Medical Decision Making Medical Decision Making: Plan: --Right hip x-ray --CT Head --600 mg Motrin PO XR viewed by me, and is negative. CT negative, patient informed of results, which were unremarkable, On re-exam, the patient reports improvement of symptoms. Lungs are CTA, heart is RRR, abdomen is soft, non-tender and the patient is tolerating PO well. Pt is ambulatory in the ED with steady gait. Disposition - Disposition Referrals: Richardson Zhang MD [Staff Provider] - Disposition: HOME/ ROUTINE Disposition Time: 01:13 Condition: STABLE Additional Instructions: Follow up with the medical doctor within 1-2 days. Return if worsened. Prescriptions: Acetaminophen [Tylenol] 325 mg PO Q6 PRN #30 tab PRN Reason: Pain, Mild (1-3) Instructions: Contusion (DC), Minor Head Injury (DC) Forms: [facility] (Slovenian), Work Excuse - Clinical Impression Clinical Impression: Minor head injury, Contusion, hip - PA / DIRECTOR OF CARDIOLOGY / Resident Statement MD/DO has reviewed & agrees with the documentation as recorded. - Scribe Statement The provider has reviewed the documentation as recorded by the Scribe Janeen Palumbo All medical record entries made by the Scribe were at my direction and personally dictated by me. I have reviewed the chart and agree that the record accurately reflects my personal performance of the history, physical exam, medical decision making, and the department course for this patient. I have also personally directed, reviewed, and agree with the discharge instructions and disposition.
--- NOTE | 2018-04-13 08:45 | CT ---
Date of service: 04/13/2018 PROCEDURE: CT HEAD WITHOUT CONTRAST. HISTORY: head injury, headache COMPARISON: None available. TECHNIQUE: Axial computed tomography images were obtained through the head/brain without intravenous contrast. Radiation dose: Total exam DLP = 1244.52 mGy-cm. This CT exam was performed using one or more of the following dose reduction techniques: Automated exposure control, adjustment of the mA and/or kV according to patient size, and/or use of iterative reconstruction technique. FINDINGS: HEMORRHAGE: No intracranial hemorrhage. BRAIN: No mass effect or edema. No atrophy or chronic microvascular ischemic changes. VENTRICLES: No hydrocephalus. CALVARIUM: Unremarkable. PARANASAL SINUSES: Mild mucosal thickening of the ethmoid air cells and maxillary sinuses. MASTOID AIR CELLS: Unremarkable as visualized. No inflammatory changes. OTHER FINDINGS: None. IMPRESSION: No acute intracranial pathology identified. Preliminary impression was provided by [employer].
--- NOTE | 2018-04-13 11:19 | RAD ---
Indication: hip pain, fall Right hip with pelvis Comparison: None available Findings: Degenerative changes of the included lumbar spine. Suspected large osteophyte/osseous proliferation at the level of L5-S1 on the right. No acute displaced fracture or dislocation identified. Sacroiliac joints appear intact. Mild constipation. Soft tissues appear unremarkable. No evidence of radiopaque foreign body. Impression: No acute displaced fracture or dislocation evident. If high clinical index of suspicion, suggest cross-sectional imaging for further evaluation. Otherwise, if symptoms persist or if there is continued clinical concern, x-ray follow-up in 7-10 days should be considered. Extensive degenerative changes of the included spine including suspected large osteophytes/osseous proliferation at the level of L5-S1 on the right.
== END 2018-04-13 01:21 | disposition home or self-care (01) ==
LOC: C.ER 23:24
DX: S09.90XA Unspecified injury of head, initial encounter (principal); S70.01XA Contusion of right hip, initial encounter; W22.8XXA Striking against or struck by other objects, initial encounter

== ENCOUNTER 2018-04-22 00:05 | Inpatient (IN) | payer MEDICAID | END 2018-04-26 09:50 | disposition home or self-care (01) | LOC: C.ER 00:05 → C.7D 04:02 ==